=== PATIENT | female | born 1950 | race Caucasian/White ===

== ENCOUNTER 2021-11-15 21:36 | Inpatient (IN) ==
[2021-11-16 00:55] LABS: Basophils # 0.1 K/mcL (0.0-0.2); Basophils % 0.8 %; Eosinophils # 0.3 K/mcL (0.0-0.6); Hematocrit 35.4 % (35.3-44.9); Hemoglobin 11.7 g/dL (11.5-15.4); Immature Granulocytes % 0.5 % (0-4); Lymphocytes # 2.5 K/mcL (0.6-4.6); Lymphocytes % 32.4 %; Mean Corpuscular HGB Conc 33.1 g/dL (31.6-35.5); Mean Corpuscular Hemoglobin 28.8 pg (28.0-33.3); Mean Corpuscular Volume 87.2 fL (83.0-100.0); Mean Platelet Volume 9.8 fL (9.4-12.4); Monocytes # 0.5 K/mcL (0.0-1.3); Monocytes % 6.9 %; Neutrophils # 4.3 K/mcL (1.6-8.9); Platelet Count 230 K/mcL (140-400); Red Blood Count 4.06 M/mcL (3.82-4.97); Red Cell Distribution Width 18.2 % (11.5-14.5); Segmented Neutrophils % 55.4 %; White Blood Count 7.8 K/mcL (4.3-11.1)
[2021-11-16] MEDS ORDERED: *HR* OxyCODONE/APAP 5/325 TABLET PO ONE (00:55)
[2021-11-16 01:17] LABS: Albumin 3.7 g/dL (3.5-5.7); Albumin/Globulin Ratio 0.9 (1.1-2.2); Bilirubin,Total 0.3 mg/dL (0.3-1.0); Calcium 9.3 mg/dL (8.6-10.3); Globulin 3.9 g/dL (2.4-3.5); Potassium 4.7 mEq/L (3.5-5.1); Total Protein 7.6 g/dL (6.4-8.9)
[2021-11-16] MEDS ORDERED: 0.9 % Sodium Chloride 1,000 ML IVC ONE (02:21)
[2021-11-16] MEDS ORDERED: Cefepime HCl 1,000 MG in 0.9 % Sodium Chloride 10 ML IVP ONE (02:21)
[2021-11-16] MEDS ORDERED: Vancomycin 1,250 MG/262.5 ML IV.SOLN IVPB ONE (02:23)
[2021-11-16] MEDS ORDERED: Melatonin 3 MG TABLET PO PRN (03:25)
[2021-11-16] MEDS ORDERED: Ondansetron ODT 4 MG TAB.RAPDIS SL PRN (03:25)
[2021-11-16] MEDS ORDERED: Naloxone 0.4 MG/ML INJ IVP PRN ×2 (03:25→03:48)
[2021-11-16] MEDS ORDERED: D5% in Water 1,000 ML IVC PRN (03:27)
[2021-11-16] MEDS ORDERED: *HR* Dextrose 50 % in Water (Syg) 50 ML SYRINGE IVP PRN (03:27)
[2021-11-16] MEDS ORDERED: Dextrose 4 GM Chewable Tablets PO PRN ×2 (03:27)
[2021-11-16] MEDS ORDERED: Acetaminophen 325 MG TABLET PO PRN (03:48)
[2021-11-16] MEDS ORDERED: *HR* HYDROcodone/Acet 5/325 mg TABLET PO PRN (03:48)
[2021-11-16 05:31] LABS: Hematocrit 35.6 % (35.3-44.9); Hemoglobin 11.1 g/dL (11.5-15.4); Mean Corpuscular HGB Conc 31.2 g/dL (31.6-35.5); Mean Corpuscular Hemoglobin 27.8 pg (28.0-33.3); Mean Corpuscular Volume 89.2 fL (83.0-100.0); Mean Platelet Volume 9.9 fL (9.4-12.4); Platelet Count 205 K/mcL (140-400); Red Blood Count 3.99 M/mcL (3.82-4.97); Red Cell Distribution Width 18.5 % (11.5-14.5); White Blood Count 6.5 K/mcL (4.3-11.1)
[2021-11-16 05:44] LABS: Magnesium 1.9 mg/dL (1.6-2.6); Phosphorous 4.8 mg/dL (2.7-4.5); Potassium 4.3 mEq/L (3.5-5.1)
[2021-11-16] MEDS: Insulin LISPRO 300 UNITS/3 ML VIAL SUBQ SCH ×3 (05:54→22:02)
[2021-11-16 06:46] LABS: INR 1.1; Prothrombin Time 11.7 Seconds (9.4-12.1)
[2021-11-16 06:48] LABS: Activated Partial Thrombo Time 33.6 Seconds (26.0-36.0)
[2021-11-16] MEDS ORDERED: 0.9 % Sodium Chloride 1,000 ML IVC SCH (07:45)
[2021-11-16] MEDS: *HR* OxyCODONE Immed Rel 5 MG TABLET PO PRN ×2 (09:19→18:39)
[2021-11-16 09:21] LABS: Estimated Average Glucose 157 mg/dl; Hemoglobin A1C 7.1 %
[2021-11-17] MEDS: Aspirin Enteric Coated 81 MG Tablet PO SCH ×2 (00:37→21:16)
[2021-11-17] MEDS: ALPRAZolam 1 MG TABLET PO SCH ×2 (00:38→21:15)
[2021-11-17] MEDS: Nystatin POWDER 30 GM BOTTLE TP SCH ×3 (00:38→21:16)
[2021-11-17] MEDS: Insulin LISPRO 300 UNITS/3 ML VIAL SUBQ SCH ×3 (04:48→21:01)
[2021-11-17 06:54] LABS: Hematocrit 41.1 % (35.3-44.9); Hemoglobin 12.7 g/dL (11.5-15.4); Mean Corpuscular HGB Conc 30.9 g/dL (31.6-35.5); Mean Corpuscular Hemoglobin 28.1 pg (28.0-33.3); Mean Corpuscular Volume 90.9 fL (83.0-100.0); Mean Platelet Volume 10.3 fL (9.4-12.4); Platelet Count 199 K/mcL (140-400); Red Blood Count 4.52 M/mcL (3.82-4.97); Red Cell Distribution Width 18.2 % (11.5-14.5); White Blood Count 5.8 K/mcL (4.3-11.1)
[2021-11-17 07:12] LABS: Calcium 9.7 mg/dL (8.6-10.3); Potassium 4.7 mEq/L (3.5-5.1)
[2021-11-17] MEDS ORDERED: Lactulose Oral Soln 20 GM/30 ML UDC PO PRN (07:54)
[2021-11-17] MEDS ORDERED: Gabapentin 300 MG CAPSULE PO SCH (09:00)
[2021-11-17] MEDS: Furosemide 20 MG TABLET PO SCH ×2 (09:10→21:15)
[2021-11-17] MEDS: Gabapentin 300 MG CAPSULE PO SCH ×2 (09:10→14:52)
[2021-11-17] MEDS: allopurinoL 300 MG TABLET PO SCH (09:10)
[2021-11-17] MEDS: Isosorbide MONOnitrate (24 HR) 60 MG TAB.ER.24H PO SCH (09:10)
[2021-11-17] MEDS: *HR* OxyCODONE Immed Rel 5 MG TABLET PO PRN (14:52)
[2021-11-17] MEDS ORDERED: Melatonin 3 MG TABLET PO SCH (21:00)
[2021-11-17] MEDS ORDERED: Gabapentin 400 MG CAPSULE PO SCH (21:00)
[2021-11-17] MEDS ORDERED: *HR* Dextrose 50 % in Water (Syg) 50 ML SYRINGE IVP PRN (21:08)
[2021-11-17] MEDS ORDERED: Dextrose 4 GM Chewable Tablets PO PRN ×2 (21:08)
[2021-11-17] MEDS ORDERED: D5% in Water 1,000 ML IVC PRN (21:08)
[2021-11-17] MEDS ORDERED: Insulin LISPRO 300 UNITS/3 ML VIAL SUBQ SCH (21:15)
[2021-11-18 07:17] VITALS: BP 169/71; PULSE 73; TEMP 97.7; O2SAT 97
[2021-11-18] MEDS ORDERED: Insulin LISPRO 300 UNITS/3 ML VIAL SUBQ SCH (07:30)
[2021-11-18] MEDS: Gabapentin 300 MG CAPSULE PO SCH (09:26)
[2021-11-18] MEDS: allopurinoL 300 MG TABLET PO SCH (09:26)
[2021-11-18] MEDS: Isosorbide MONOnitrate (24 HR) 60 MG TAB.ER.24H PO SCH (09:26)
[2021-11-18] MEDS: Furosemide 20 MG TABLET PO SCH (09:26)
== END 2021-11-18 10:50 | disposition home health service (06) | DRG 300 ==
LOC: 4WAOSI 21:36 → EMEROOARM 21:36 → SUATTDRO 11-16 03:24 → 4WAOSI 11-16 03:55 → SUATTDRO 11-17 09:23
PROVIDERS: ADMIT Internal Medicine; ATTEND Internal Medicine

== ENCOUNTER 2021-12-14 09:56 | Inpatient (IN) ==
[2021-12-14] MEDS ORDERED: *HR* Propofol 200 MG/20 ML VIAL IVP ONE (10:22)
[2021-12-14] MEDS ORDERED: Lidocaine -MPF 2% 2 ML VIAL ONE (10:23)
[2021-12-14] MEDS ORDERED: *HR* Rocuronium Bromide 50 MG/5 ML VIAL ONE ×2 (10:23→14:13)
[2021-12-14] MEDS ORDERED: Ondansetron 4 MG/2 ML VIAL ONE (10:23)
[2021-12-14] MEDS ORDERED: *HR* Heparin 5,000 UNIT/ML VIAL ONE (10:27)
[2021-12-14] MEDS ORDERED: *HR* Phenylephrine 10 MG/ML VIAL ONE (10:31)
[2021-12-14] MEDS ORDERED: CeFAZolin Syr 2,000MG/20 ML 2,000 MG/20 ML SYRINGE IVPB ONE (10:37)
[2021-12-14] MEDS ORDERED: Vancomycin 1,250 MG/262.5 ML IV.SOLN IVPB ONE (10:37)
[2021-12-14] MEDS ORDERED: Ringers Solution, Lactated 1,000 ML IVC SCH (10:45)
[2021-12-14] MEDS ORDERED: Vancomycin 1,000 MG, Sodium Chloride IRRigation 1,000 ML IR ONE (12:25)
[2021-12-14] MEDS ORDERED: Bupivacaine-MPF 0.25% 10 ML VIAL ONE (12:39)
[2021-12-14] MEDS ORDERED: Heparin 1,000 UNITS/500 mL 1,500 ML ONE (12:39)
[2021-12-14] MEDS ORDERED: Isovue-300 50ML VIAL ONE (12:40)
[2021-12-14] MEDS ORDERED: *HR* OxyCODONE Immed Rel 5 MG TABLET PO PRN ×2 (12:49→19:10)
[2021-12-14] MEDS ORDERED: Ondansetron 4 MG/2 ML VIAL IVP PRN (12:49)
[2021-12-14] MEDS ORDERED: *HR* HYDROmorphone PF 0.5 MG/0.5 ML SYRINGE IVP PRN (12:49)
[2021-12-14] MEDS ORDERED: Heparin 1,000 UNITS/500 mL 0 ML ONE (12:56)
[2021-12-14] MEDS ORDERED: *HR* FentaNYL (PF) 100 MCG/2 ML VIAL ONE (13:19)
[2021-12-14] MEDS ORDERED: *HR* Midazolam HCl 2 MG/2 ML VIAL ONE (13:19)
[2021-12-14] MEDS ORDERED: EPHEDrine 50 MG/ML VIAL ONE (13:48)
[2021-12-14] MEDS ORDERED: *HR* Vasopressin 20 UNIT/ML VIAL ONE (14:09)
[2021-12-14] MEDS ORDERED: Sugammadex Sodium 200 MG/2 ML VIAL IV ONE (17:10)
[2021-12-14] MEDS ORDERED: *HR* HYDROMORPHONE 2 MG/ML VIAL ONE (17:29)
[2021-12-14] MEDS ORDERED: Dextrose Gel 15 GM/37.5 ML TUBE PO PRN ×2 (19:10)
[2021-12-14] MEDS ORDERED: Ipratropium/Albuterol Neb 3 ML IH PRN (19:10)
[2021-12-14] MEDS ORDERED: D5% in Water 1,000 ML IVC PRN (19:10)
[2021-12-14] MEDS ORDERED: Acetaminophen 325 MG TABLET PO PRN (19:10)
[2021-12-14] MEDS ORDERED: *HR* HYDROcodone/Acet 5/325 mg TABLET PO PRN (19:10)
[2021-12-14] MEDS ORDERED: Naloxone 0.4 MG/ML INJ IVP PRN (19:10)
[2021-12-14] MEDS ORDERED: 0.9 % Sodium Chloride 1,000 ML IVC SCH (19:10)
[2021-12-14] MEDS ORDERED: Nitroglycerin 0.4 MG TAB.SUBL SL PRN (19:10)
[2021-12-14] MEDS ORDERED: *HR* Labetalol 20 MG/4 ML SYRINGE IVP PRN (19:10)
[2021-12-14] MEDS ORDERED: *HR* Dextrose 50 % in Water (Syg) 50 ML SYRINGE IVP PRN (19:10)
[2021-12-14] MEDS: Gabapentin 300 MG CAPSULE PO SCH (19:48)
[2021-12-14] MEDS: lisinopriL 20 MG TABLET PO SCH (19:48)
[2021-12-14] MEDS: *HR* Metoprolol 5 MG/5 ML VIAL IVP SCH (19:53)
[2021-12-14] MEDS ORDERED: ALPRAZolam 1 MG TABLET PO SCH (21:00)
[2021-12-14] MEDS ORDERED: Insulin LISPRO 300 UNITS/3 ML VIAL SUBQ SCH (21:00)
[2021-12-14] MEDS ORDERED: Aspirin Enteric Coated 81 MG Tablet PO SCH (21:00)
[2021-12-14] MEDS: CeFAZolin 2 GM/120 ML BAG IVPB SCH (22:24)
[2021-12-15] MEDS: *HR* Metoprolol 5 MG/5 ML VIAL IVP SCH ×2 (00:43→05:23)
[2021-12-15] MEDS ORDERED: Vancomycin 1,250 MG/262.5 ML IV.SOLN IVPB ONE (01:00)
[2021-12-15 04:12] LABS: Basophils % 0.1 %; Eosinophils % 0.1 %; Hematocrit 27.2 % (35.3-44.9); Hemoglobin 8.3 g/dL (11.5-15.4); Immature Granulocytes % 0.7 % (0-4); Lymphocytes # 1.2 K/mcL (0.6-4.6); Lymphocytes % 14.1 %; Mean Corpuscular HGB Conc 30.5 g/dL (31.6-35.5); Mean Corpuscular Volume 91.9 fL (83.0-100.0); Mean Platelet Volume 10.2 fL (9.4-12.4); Monocytes # 0.5 K/mcL (0.0-1.3); Monocytes % 5.3 %; Platelet Count 174 K/mcL (140-400); Red Blood Count 2.96 M/mcL (3.82-4.97); Red Cell Distribution Width 18.2 % (11.5-14.5); Segmented Neutrophils % 79.7 %; White Blood Count 8.7 K/mcL (4.3-11.1)
[2021-12-15 04:30] LABS: Calcium 8.5 mg/dL (8.6-10.3); Potassium 5.7 mEq/L (3.5-5.1)
[2021-12-15] MEDS: CeFAZolin 2 GM/120 ML BAG IVPB SCH (05:30)
[2021-12-15] MEDS: lisinopriL 20 MG TABLET PO SCH (08:14)
[2021-12-15] MEDS: Gabapentin 300 MG CAPSULE PO SCH (08:15)
[2021-12-15] MEDS: Insulin LISPRO 300 UNITS/3 ML VIAL SUBQ SCH ×2 (08:15→11:23)
[2021-12-15] MEDS ORDERED: hydrALAZINE 25 MG TABLET PO SCH (09:00)
[2021-12-15] MEDS ORDERED: carvediloL 25 MG TABLET PO SCH (09:00)
[2021-12-15] MEDS ORDERED: allopurinoL 300 MG TABLET PO SCH (09:00)
[2021-12-15] MEDS ORDERED: Furosemide 20 MG TABLET PO SCH (09:00)
[2021-12-15 10:02] VITALS: BP 121/49
[2021-12-15 11:23] VITALS: PULSE 55; TEMP 97.8; O2SAT 92
[2021-12-15] MEDS ORDERED: *HR* Heparin 5,000 UNIT/ML VIAL SQ SCH ×2 (18:00)
== END 2021-12-15 13:09 | disposition home or self-care (01) | DRG 254 ==
LOC: SAMDAY 09:56 → 2NNU 18:50
PROVIDERS: ADMIT Surgery; ATTEND Surgery

== ENCOUNTER 2021-12-17 04:47 | Inpatient (IN) ==
[2021-12-17] MEDS ORDERED: *HR* Metoprolol 5 MG/5 ML VIAL IVP ONE (10:47)
[2021-12-17] MEDS ORDERED: Nitroglycerin 0.4 MG TAB.SUBL SL PRN (11:01)
[2021-12-17] MEDS ORDERED: Perflutren Lipid Microsphere 1.3 ML in 0.9 % Sodium Chloride 8.7 ML IVP PRN (11:01)
[2021-12-17] MEDS ORDERED: D5% in Water 1,000 ML IVC PRN (11:15)
[2021-12-17] MEDS ORDERED: Dextrose Gel 15 GM/37.5 ML TUBE PO PRN ×2 (11:15)
[2021-12-17] MEDS ORDERED: *HR* Dextrose 50 % in Water (Syg) 50 ML SYRINGE IVP PRN (11:15)
[2021-12-17 11:30] LABS: Hemoglobin 9.4 g/dL (11.5-15.4); Mean Corpuscular HGB Conc 32.4 g/dL (31.6-35.5); Mean Corpuscular Hemoglobin 27.8 pg (28.0-33.3); Mean Platelet Volume 10.2 fL (9.4-12.4); Platelet Count 195 K/mcL (140-400); Red Blood Count 3.38 M/mcL (3.82-4.97); Red Cell Distribution Width 17.8 % (11.5-14.5); White Blood Count 7.7 K/mcL (4.3-11.1)
[2021-12-17 11:31] LABS: Mean Corpuscular Volume 85.8 fL (83.0-100.0)
[2021-12-17] MEDS: Insulin LISPRO 300 UNITS/3 ML VIAL SUBQ SCH ×2 (11:51→16:16)
[2021-12-17] MEDS: MethylPREDNISolone 40 MG/ML VIAL IVP SCH ×2 (11:51→16:15)
[2021-12-17] MEDS: Aspirin 81 MG TAB.CHEW PO SCH (11:51)
[2021-12-17 11:55] LABS: Alanine Aminotransferase 11 Units/L (7-52); Albumin 3.5 g/dL (3.5-5.7); Albumin/Globulin Ratio 0.7 (1.1-2.2); Alkaline Phosphatase 99 Units/L (34-104); Aspartate Amino Transferase 32 Units/L (13-39); BUN/Creatinine Ratio 22 (6-26); Bilirubin,Total 0.4 mg/dL (0.3-1.0); Blood Urea Nitrogen 24 mg/dL (8-23); C-Reactive Protein 93 mg/L (Less than 10); Calcium 9.7 mg/dL (8.6-10.3); Carbon Dioxide 25 mEq/L (23-29); Chloride 96 mEq/L (98-107); Glucose 173 mg/dL (70-105); Osmolality,Calculated 280 (280-300); Potassium 4.3 mEq/L (3.5-5.1); Sodium 131 mEq/L (136-145); Total Protein 8.5 g/dL (6.4-8.9); Troponin I 0.08 ng/mL (< 0.04); eGFR For African Americans > 60 (> 60); eGFR For Non-African Americans 50 (> 60)
[2021-12-17] MEDS ORDERED: *HR* Heparin 5,000 UNIT/ML VIAL IVP PRN ×2 (13:49)
[2021-12-17] MEDS ORDERED: *HR* Heparin 5,000 UNIT/ML VIAL IVP ONE (13:49)
[2021-12-17] MEDS: Heparin 25,000UNIT/250ML 1/2NS 25,000 UNIT/250 ML IV.SOLN IVC SCH (14:36)
[2021-12-17] MEDS: *HR* OxyCODONE/APAP 10/325 TABLET PO PRN (14:43)
[2021-12-17] MEDS: Furosemide 40 MG/4 ML VIAL IVP SCH ×2 (14:43→20:45)
[2021-12-17] MEDS: Isosorbide MONOnitrate (24 HR) 60 MG TAB.ER.24H PO SCH (14:43)
[2021-12-17] MEDS: lisinopriL 10 MG TABLET PO SCH (14:43)
[2021-12-17] MEDS: Ipratropium/Albuterol Neb 3 ML IH SCH ×2 (16:26→22:42)
[2021-12-17 18:31] LABS: Heparin anti-factor XA UFH 0.67 IU/mL (0.30-0.70); INR 1.2
[2021-12-17] MEDS: ALPRAZolam 1 MG TABLET PO SCH (20:45)
[2021-12-17] MEDS: Ondansetron 4 MG/2 ML VIAL IVP PRN (20:50)
[2021-12-17] MEDS ORDERED: Aspirin Enteric Coated 81 MG Tablet PO SCH (21:00)
[2021-12-17] MEDS: Budesonide/Formoterol 160/4.5 1 PUFF INH IH SCH (22:42)
[2021-12-18] MEDS: *HR* OxyCODONE/APAP 10/325 TABLET PO PRN (00:22)
[2021-12-18] MEDS: Melatonin 3 MG TABLET PO PRN (00:22)
[2021-12-18] MEDS: MethylPREDNISolone 40 MG/ML VIAL IVP SCH ×3 (00:22→13:15)
[2021-12-18] MEDS: Insulin LISPRO 300 UNITS/3 ML VIAL SUBQ SCH ×5 (00:23→21:12)
[2021-12-18] MEDS: Ipratropium/Albuterol Neb 3 ML IH SCH ×4 (04:37→21:20)
[2021-12-18 04:49] LABS: Basophils % 0.1 %; Hematocrit 29.6 % (35.3-44.9); Hemoglobin 9.3 g/dL (11.5-15.4); Immature Granulocytes % 0.9 % (0-4); Lymphocytes # 0.8 K/mcL (0.6-4.6); Mean Corpuscular HGB Conc 31.4 g/dL (31.6-35.5); Mean Corpuscular Hemoglobin 27.4 pg (28.0-33.3); Mean Corpuscular Volume 87.3 fL (83.0-100.0); Mean Platelet Volume 10.7 fL (9.4-12.4); Monocytes # 0.4 K/mcL (0.0-1.3); Monocytes % 3.3 %; Neutrophils # 9.3 K/mcL (1.6-8.9); Platelet Count 238 K/mcL (140-400); Red Blood Count 3.39 M/mcL (3.82-4.97); Red Cell Distribution Width 18.1 % (11.5-14.5); Segmented Neutrophils % 87.7 %; White Blood Count 10.5 K/mcL (4.3-11.1)
[2021-12-18 04:51] LABS: Heparin anti-factor XA UFH 0.47 IU/mL (0.30-0.70)
[2021-12-18 04:52] LABS: Prothrombin Time 11.6 Seconds (9.4-12.1)
[2021-12-18 05:00] LABS: Albumin 3.8 g/dL (3.5-5.7); Albumin/Globulin Ratio 0.8 (1.1-2.2); Bilirubin,Total 0.3 mg/dL (0.3-1.0); Calcium 9.7 mg/dL (8.6-10.3); Globulin 4.9 g/dL (2.4-3.5); Magnesium 1.9 mg/dL (1.6-2.6); Potassium 4.5 mEq/L (3.5-5.1); Total Protein 8.7 g/dL (6.4-8.9)
[2021-12-18] MEDS: allopurinoL 300 MG TABLET PO SCH (08:01)
[2021-12-18] MEDS: Aspirin 81 MG TAB.CHEW PO SCH (08:01)
[2021-12-18] MEDS: lisinopriL 10 MG TABLET PO SCH (08:01)
[2021-12-18] MEDS: Isosorbide MONOnitrate (24 HR) 60 MG TAB.ER.24H PO SCH (08:02)
[2021-12-18 08:31] LABS: Estimated Average Glucose 154 mg/dl
[2021-12-18] MEDS: Budesonide/Formoterol 160/4.5 1 PUFF INH IH SCH ×2 (10:28→21:20)
[2021-12-18] MEDS: Heparin 25,000UNIT/250ML 1/2NS 25,000 UNIT/250 ML IV.SOLN IVC SCH (15:38)
[2021-12-18] MEDS: amLODIPine 5 MG TABLET PO SCH (15:39)
[2021-12-18] MEDS: ALPRAZolam 1 MG TABLET PO SCH (21:07)
[2021-12-18] MEDS: Gabapentin 400 MG CAPSULE PO SCH (21:07)
[2021-12-19 04:25] LABS: Hemoglobin 8.3 g/dL (11.5-15.4); Mean Corpuscular HGB Conc 30.7 g/dL (31.6-35.5); Mean Corpuscular Hemoglobin 27.2 pg (28.0-33.3); Mean Corpuscular Volume 88.5 fL (83.0-100.0); Mean Platelet Volume 10.8 fL (9.4-12.4); Platelet Count 221 K/mcL (140-400); Red Blood Count 3.05 M/mcL (3.82-4.97); Red Cell Distribution Width 18.5 % (11.5-14.5)
[2021-12-19] MEDS: Ipratropium/Albuterol Neb 3 ML IH SCH ×4 (04:34→22:35)
[2021-12-19 04:43] LABS: Calcium 9.3 mg/dL (8.6-10.3); Potassium 4.4 mEq/L (3.5-5.1)
[2021-12-19] MEDS: Budesonide/Formoterol 160/4.5 1 PUFF INH IH SCH ×2 (07:33→22:34)
[2021-12-19] MEDS: Insulin LISPRO 300 UNITS/3 ML VIAL SUBQ SCH ×4 (07:37→21:07)
[2021-12-19 07:38] LABS: ABG Base Excess 2 mEq/L (-2 to 3); ABG HCO3 25 mEq/L (21-27); ABG Oxygen Saturation 95 % (95-98); ABG PCO2 35 mmHg (35-45); ABG PH 7.47 pH Units (7.32-7.45); ABG PO2 69 mmHg (85-104); ABG TCO2 26 mEq/L (20-26)
[2021-12-19] MEDS ORDERED: Furosemide 40 MG/4 ML VIAL IVP ONE (07:44)
[2021-12-19] MEDS: MethylPREDNISolone 40 MG/ML VIAL IVP SCH ×2 (08:09→21:02)
[2021-12-19] MEDS: Isosorbide MONOnitrate (24 HR) 60 MG TAB.ER.24H PO SCH (08:16)
[2021-12-19] MEDS: allopurinoL 300 MG TABLET PO SCH (08:16)
[2021-12-19] MEDS: Gabapentin 400 MG CAPSULE PO SCH ×2 (08:16→12:58)
[2021-12-19] MEDS: amLODIPine 5 MG TABLET PO SCH (08:16)
[2021-12-19] MEDS: Aspirin 81 MG TAB.CHEW PO SCH (08:16)
[2021-12-19 09:01] LABS: Bilirubin,Urine Negative (Negative); Blood,Urine Negative (Negative); Clarity,Urine Clear (Clear); Color,Urine Light-Yellow (Yellow); Glucose,Urine (UA) Normal (Normal); Ketones,Urine Negative (Negative); Leukocyte Esterase,Urine Negative (Negative); Nitrite,Urine Negative (Negative); PH,Urine 6.5 pH Units (5.0-8.0); Protein,Urine 50 mg/dL (Neg-Trace); Specific Gravity,Urine 1.014 (1.010-1.025); Transitional Epi Cells,Urine Few per hpf (None-Few); Urobilinogen,Urine Normal (Normal); WBC,Urine 0-3 per hpf (0-3)
[2021-12-19] MEDS ORDERED: Albumin 25% 25gram/100mL 25 GM/100 ML IV.SOLN ONE (13:43)
[2021-12-19] MEDS ORDERED: Albumin 25% 25gram/100mL 25 GM/100 ML IV.SOLN IVPB ONE (13:45)
[2021-12-19] MEDS ORDERED: 0.9 % Sodium Chloride 500 ML ONE (13:47)
[2021-12-19] MEDS ORDERED: 0.9 % Sodium Chloride 500 ML IVC ONE (13:51)
[2021-12-19 14:09] LABS: Hemoglobin 8.2 g/dL (11.5-15.4)
[2021-12-19] MEDS: *HR* Heparin 5,000 UNIT/ML VIAL SQ SCH (16:48)
[2021-12-19 16:59] LABS: Thyroid Stimulating Hormone 2.944 mcIU/mL (0.340-5.600)
[2021-12-19] MEDS ORDERED: carvediloL 6.25 MG TABLET PO SCH (17:00)
[2021-12-19] MEDS: ALPRAZolam 1 MG TABLET PO SCH (21:01)
[2021-12-20 03:36] LABS: Basophils % 0.1 %; Eosinophils % 0.1 %; Hematocrit 24.5 % (35.3-44.9); Hemoglobin 7.5 g/dL (11.5-15.4); Immature Granulocytes % 0.8 % (0-4); Lymphocytes % 5.8 %; Mean Corpuscular HGB Conc 30.6 g/dL (31.6-35.5); Mean Corpuscular Hemoglobin 27.5 pg (28.0-33.3); Mean Corpuscular Volume 89.7 fL (83.0-100.0); Mean Platelet Volume 10.8 fL (9.4-12.4); Monocytes # 0.7 K/mcL (0.0-1.3); Neutrophils # 15.3 K/mcL (1.6-8.9); Platelet Count 198 K/mcL (140-400); Red Blood Count 2.73 M/mcL (3.82-4.97); Red Cell Distribution Width 18.6 % (11.5-14.5); Segmented Neutrophils % 89.2 %
[2021-12-20 03:40] LABS: White Blood Count 17.1 K/mcL (4.3-11.1)
[2021-12-20 03:58] LABS: Calcium 9.2 mg/dL (8.6-10.3)
[2021-12-20] MEDS: Ipratropium/Albuterol Neb 3 ML IH SCH ×4 (04:29→22:28)
[2021-12-20] MEDS: *HR* Heparin 5,000 UNIT/ML VIAL SQ SCH ×2 (05:16→17:20)
[2021-12-20] MEDS: Isosorbide MONOnitrate (24 HR) 60 MG TAB.ER.24H PO SCH (07:50)
[2021-12-20] MEDS: Aspirin 81 MG TAB.CHEW PO SCH (07:50)
[2021-12-20] MEDS: Insulin LISPRO 300 UNITS/3 ML VIAL SUBQ SCH ×6 (07:50→20:33)
[2021-12-20] MEDS: allopurinoL 300 MG TABLET PO SCH (07:50)
[2021-12-20] MEDS: MethylPREDNISolone 40 MG/ML VIAL IVP SCH (07:51)
[2021-12-20] MEDS: *HR* OxyCODONE/APAP 10/325 TABLET PO PRN (07:55)
[2021-12-20] MEDS: Azithromycin 250 MG TABLET PO SCH (10:01)
[2021-12-20] MEDS: Budesonide/Formoterol 160/4.5 1 PUFF INH IH SCH ×2 (10:20→22:28)
[2021-12-20 11:12] LABS: Adenovirus Not Detected (Not Detect); Bordetella Pertussis Not Detected (Not Detect); Chlamydophila pneumoniae Not Detected (Not Detect); Coronavirus 229E Not Detected (Not Detect); Coronavirus HKU1 Not Detected (Not Detect); Coronavirus NL63 Not Detected (Not Detect); Coronavirus OC43 Not Detected (Not Detect); Human Metapneumovirus Not Detected (Not Detect); Human Rhinovirus/Enterovirus Not Detected (Not Detect); Influenza A Subtype 2009 H1 Not Detected (Not Detect); Influenza B Not Detected (Not Detect); Mycoplasma pneumoniae Not Detected (Not Detect); Parainfluenza Virus 1 Not Detected (Not Detect); Parainfluenza Virus 2 Not Detected (Not Detect); Parainfluenza Virus 3 Not Detected (Not Detect); Parainfluenza Virus 4 Not Detected (Not Detect); Respiratory Syncytial Virus Not Detected (Not Detect); SARS-CoV-2 Not Detected (Not Detect)
[2021-12-20 16:37] LABS: Protein/Creatinine Ratio,Urine 1.04 mg/mg (0.00-0.20); Sodium, Urine 50.5 mEq/L
[2021-12-20] MEDS ORDERED: Insulin LISPRO 300 UNITS/3 ML VIAL SUBQ SCH (16:53)
[2021-12-20] MEDS: ALPRAZolam 1 MG TABLET PO SCH (20:35)
[2021-12-20] MEDS ORDERED: Insulin DETEMIR 100 UNIT/ML X5UNITS SUBQ SCH (21:00)
[2021-12-21 03:56] LABS: Basophils % 0.2 %; Eosinophils % 0.1 %; Hematocrit 24.8 % (35.3-44.9); Hemoglobin 7.7 g/dL (11.5-15.4); Immature Granulocytes % 2.1 % (0-4); Lymphocytes # 1.9 K/mcL (0.6-4.6); Mean Corpuscular Volume 90.2 fL (83.0-100.0); Mean Platelet Volume 11.1 fL (9.4-12.4); Monocytes # 0.9 K/mcL (0.0-1.3); Monocytes % 5.6 %; Neutrophils # 12.4 K/mcL (1.6-8.9); Nucleated Red Blood Cells 0.1 /100 WBC (0); Platelet Count 221 K/mcL (140-400); Red Blood Count 2.75 M/mcL (3.82-4.97); Red Cell Distribution Width 18.8 % (11.5-14.5); White Blood Count 15.5 K/mcL (4.3-11.1)
[2021-12-21] MEDS: Ipratropium/Albuterol Neb 3 ML IH SCH ×4 (04:09→21:08)
[2021-12-21 04:16] LABS: Calcium 9.2 mg/dL (8.6-10.3); Potassium 4.5 mEq/L (3.5-5.1)
[2021-12-21] MEDS: *HR* Heparin 5,000 UNIT/ML VIAL SQ SCH ×2 (06:05→16:01)
[2021-12-21] MEDS: *HR* OxyCODONE/APAP 10/325 TABLET PO PRN (08:12)
[2021-12-21] MEDS: Insulin LISPRO 300 UNITS/3 ML VIAL SUBQ SCH ×4 (08:13→21:57)
[2021-12-21] MEDS: Azithromycin 250 MG TABLET PO SCH (08:13)
[2021-12-21] MEDS: Aspirin 81 MG TAB.CHEW PO SCH (08:13)
[2021-12-21] MEDS: allopurinoL 300 MG TABLET PO SCH (08:13)
[2021-12-21] MEDS: Isosorbide MONOnitrate (24 HR) 60 MG TAB.ER.24H PO SCH (08:13)
[2021-12-21] MEDS ORDERED: predniSONE 20 MG TABLET PO SCH (09:00)
[2021-12-21] MEDS: Budesonide/Formoterol 160/4.5 1 PUFF INH IH SCH ×2 (10:49→21:09)
[2021-12-21] MEDS: cefTRIAXone 1,000 MG in 0.9 % Sodium Chloride 10 ML IVP SCH (11:29)
[2021-12-21] MEDS: amLODIPine 5 MG TABLET PO SCH (12:04)
[2021-12-21 14:54] LABS: Complement C3 137 mg/dL (87-200)
[2021-12-21] MEDS: Albumin 25% 25gram/100mL 25 GM/100 ML IV.SOLN IVPB SCH (15:57)
[2021-12-21] MEDS: ALPRAZolam 1 MG TABLET PO SCH (21:55)
[2021-12-21] MEDS: Insulin DETEMIR 100 UNIT/ML X5UNITS SUBQ SCH (21:57)
[2021-12-21] MEDS ORDERED: *HR* Labetalol 20 MG/4 ML SYRINGE IVP ONE (23:22)
[2021-12-22] MEDS: Albumin 25% 25gram/100mL 25 GM/100 ML IV.SOLN IVPB SCH ×2 (01:56→08:02)
[2021-12-22 03:52] LABS: Basophils % 0.2 %; Eosinophils % 0.1 %; Hematocrit 25.3 % (35.3-44.9); Hemoglobin 7.7 g/dL (11.5-15.4); Immature Granulocytes % 1.7 % (0-4); Lymphocytes # 1.4 K/mcL (0.6-4.6); Lymphocytes % 11.7 %; Mean Corpuscular HGB Conc 30.4 g/dL (31.6-35.5); Mean Corpuscular Hemoglobin 27.4 pg (28.0-33.3); Mean Platelet Volume 10.8 fL (9.4-12.4); Monocytes # 0.5 K/mcL (0.0-1.3); Monocytes % 4.2 %; Platelet Count 209 K/mcL (140-400); Red Blood Count 2.81 M/mcL (3.82-4.97); Red Cell Distribution Width 18.6 % (11.5-14.5); Segmented Neutrophils % 82.1 %; White Blood Count 12.2 K/mcL (4.3-11.1)
[2021-12-22] MEDS: Ipratropium/Albuterol Neb 3 ML IH SCH ×4 (03:59→21:06)
[2021-12-22] MEDS: *HR* Heparin 5,000 UNIT/ML VIAL SQ SCH ×2 (05:49→17:37)
[2021-12-22 06:17] LABS: Calcium 9.8 mg/dL (8.6-10.3); Potassium 4.5 mEq/L (3.5-5.1)
[2021-12-22] MEDS: Insulin LISPRO 300 UNITS/3 ML VIAL SUBQ SCH ×4 (07:58→20:03)
[2021-12-22] MEDS: Azithromycin 250 MG TABLET PO SCH (08:00)
[2021-12-22] MEDS: Isosorbide MONOnitrate (24 HR) 60 MG TAB.ER.24H PO SCH (08:01)
[2021-12-22] MEDS: Aspirin 81 MG TAB.CHEW PO SCH (08:01)
[2021-12-22] MEDS: amLODIPine 5 MG TABLET PO SCH (08:01)
[2021-12-22] MEDS: *HR* OxyCODONE/APAP 10/325 TABLET PO PRN ×2 (08:01→17:36)
[2021-12-22] MEDS: allopurinoL 300 MG TABLET PO SCH (08:01)
[2021-12-22] MEDS: cefTRIAXone 1,000 MG in 0.9 % Sodium Chloride 10 ML IVP SCH (08:03)
[2021-12-22] MEDS: Insulin DETEMIR 100 UNIT/ML X5UNITS SUBQ SCH ×2 (08:05→20:03)
[2021-12-22] MEDS: Budesonide/Formoterol 160/4.5 1 PUFF INH IH SCH ×2 (10:27→21:06)
[2021-12-22] MEDS: lisinopriL 20 MG TABLET PO SCH (11:30)
[2021-12-22] MEDS: Gabapentin 400 MG CAPSULE PO SCH ×2 (17:35→20:02)
[2021-12-22] MEDS: Vancomycin 1,250 MG/262.5 ML IV.SOLN IVPB SCH (18:03)
[2021-12-22] MEDS: Clindamycin 900 MG/50 ML 900 MG/50 ML IV.SOLN IVPB SCH (18:09)
[2021-12-22] MEDS: Melatonin 3 MG TABLET PO PRN (20:02)
[2021-12-22] MEDS: ALPRAZolam 1 MG TABLET PO SCH (20:03)
[2021-12-23] MEDS: Clindamycin 900 MG/50 ML 900 MG/50 ML IV.SOLN IVPB SCH ×3 (01:51→16:18)
[2021-12-23 02:41] LABS: Hematocrit 26.9 % (35.3-44.9); Hemoglobin 8.6 g/dL (11.5-15.4)
[2021-12-23 02:43] LABS: Basophils % 0.5 %; Eosinophils # 0.1 K/mcL (0.0-0.6); Eosinophils % 1.5 %; Immature Granulocytes % 3.5 % (0-4); Immature Platelets 5.2 % (1.1-6.1); Lymphocytes # 1.4 K/mcL (0.6-4.6); Lymphocytes % 18.2 %; Mean Corpuscular Hemoglobin 28.1 pg (28.0-33.3); Mean Corpuscular Volume 87.9 fL (83.0-100.0); Mean Platelet Volume 10.6 fL (9.4-12.4); Monocytes # 0.5 K/mcL (0.0-1.3); Monocytes % 6.7 %; Neutrophils # 5.5 K/mcL (1.6-8.9); Nucleated Red Blood Cells 0.5 /100 WBC (0); Platelet Count 217 K/mcL (140-400); Red Blood Count 3.06 M/mcL (3.82-4.97); Red Cell Distribution Width 18.8 % (11.5-14.5); Segmented Neutrophils % 69.6 %; White Blood Count 7.9 K/mcL (4.3-11.1)
[2021-12-23 02:46] LABS: Calcium 9.6 mg/dL (8.6-10.3); Potassium 4.9 mEq/L (3.5-5.1)
[2021-12-23 03:07] LABS: Platelet Estimate Normal (Normal)
[2021-12-23 03:08] LABS: Anisocytosis 1+ (Not Present); Hypochromasia Present (Not Present); Polychromasia 1+ (Not Present)
[2021-12-23] MEDS: Ipratropium/Albuterol Neb 3 ML IH SCH ×4 (03:53→22:03)
[2021-12-23] MEDS: *HR* Heparin 5,000 UNIT/ML VIAL SQ SCH ×2 (04:51→16:18)
[2021-12-23] MEDS: Insulin LISPRO 300 UNITS/3 ML VIAL SUBQ SCH ×4 (07:58→20:23)
[2021-12-23] MEDS ORDERED: *HR* FentaNYL (PF) 100 MCG/2 ML VIAL ONE (08:30)
[2021-12-23] MEDS ORDERED: *HR* Midazolam HCl 2 MG/2 ML VIAL ONE (08:30)
[2021-12-23] MEDS ORDERED: Lidocaine -MPF 2% 2 ML VIAL ONE (08:31)
[2021-12-23] MEDS ORDERED: Ketamine HCL *QUVA* 50mg (1mL) SYRINGE ONE (08:54)
[2021-12-23] MEDS: Budesonide/Formoterol 160/4.5 1 PUFF INH IH SCH ×2 (10:14→22:03)
[2021-12-23] MEDS: allopurinoL 300 MG TABLET PO SCH (10:49)
[2021-12-23] MEDS: cefTRIAXone 1,000 MG in 0.9 % Sodium Chloride 10 ML IVP SCH (10:49)
[2021-12-23] MEDS: Isosorbide MONOnitrate (24 HR) 60 MG TAB.ER.24H PO SCH (10:49)
[2021-12-23] MEDS: lisinopriL 20 MG TABLET PO SCH (10:49)
[2021-12-23] MEDS: Insulin DETEMIR 100 UNIT/ML X5UNITS SUBQ SCH ×2 (10:57→20:23)
[2021-12-23] MEDS: Aspirin 81 MG TAB.CHEW PO SCH (10:58)
[2021-12-23] MEDS: amLODIPine 5 MG TABLET PO SCH (10:58)
[2021-12-23] MEDS: Gabapentin 400 MG CAPSULE PO SCH ×3 (11:00→20:23)
[2021-12-23] MEDS: *HR* OxyCODONE/APAP 10/325 TABLET PO PRN (16:25)
[2021-12-23] MEDS: Vancomycin 1,250 MG/262.5 ML IV.SOLN IVPB SCH (18:01)
[2021-12-23] MEDS: ALPRAZolam 1 MG TABLET PO SCH (20:23)
[2021-12-24] MEDS: Clindamycin 900 MG/50 ML 900 MG/50 ML IV.SOLN IVPB SCH ×3 (00:08→16:24)
[2021-12-24 01:35] LABS: Basophils # 0.1 K/mcL (0.0-0.2); Eosinophils # 0.2 K/mcL (0.0-0.6); Eosinophils % 1.7 %; Hematocrit 31.7 % (35.3-44.9); Hemoglobin 10.1 g/dL (11.5-15.4); Immature Granulocytes % 4.5 % (0-4); Lymphocytes # 1.8 K/mcL (0.6-4.6); Lymphocytes % 20.2 %; Mean Corpuscular HGB Conc 31.9 g/dL (31.6-35.5); Mean Corpuscular Hemoglobin 28.5 pg (28.0-33.3); Mean Corpuscular Volume 89.5 fL (83.0-100.0); Mean Platelet Volume 9.9 fL (9.4-12.4); Monocytes # 0.7 K/mcL (0.0-1.3); Monocytes % 7.7 %; Neutrophils # 5.9 K/mcL (1.6-8.9); Nucleated Red Blood Cells 0.3 /100 WBC (0); Platelet Count 217 K/mcL (140-400); Red Blood Count 3.54 M/mcL (3.82-4.97); Red Cell Distribution Width 19.1 % (11.5-14.5); Segmented Neutrophils % 64.9 %; White Blood Count 9.1 K/mcL (4.3-11.1)
[2021-12-24 01:57] LABS: Calcium 9.4 mg/dL (8.6-10.3); Potassium 5.7 mEq/L (3.5-5.1)
[2021-12-24] MEDS: Ipratropium/Albuterol Neb 3 ML IH SCH ×4 (03:37→21:28)
[2021-12-24] MEDS: *HR* Heparin 5,000 UNIT/ML VIAL SQ SCH ×2 (05:22→16:24)
[2021-12-24] MEDS ORDERED: Calcium Gluconate 1gm/50mL 1 GM/50 ML BAG IVPB ONE (07:44)
[2021-12-24] MEDS ORDERED: SODIUM ZIRCONIUM CYCLOSILICATE 5 GM POWD.PACK PO ONE (07:44)
[2021-12-24] MEDS: Aspirin 81 MG TAB.CHEW PO SCH (08:05)
[2021-12-24] MEDS: Isosorbide MONOnitrate (24 HR) 60 MG TAB.ER.24H PO SCH (08:05)
[2021-12-24] MEDS: allopurinoL 300 MG TABLET PO SCH (08:05)
[2021-12-24] MEDS: Gabapentin 400 MG CAPSULE PO SCH ×3 (08:05→20:55)
[2021-12-24] MEDS: cefTRIAXone 1,000 MG in 0.9 % Sodium Chloride 10 ML IVP SCH (08:06)
[2021-12-24] MEDS: Insulin LISPRO 300 UNITS/3 ML VIAL SUBQ SCH ×4 (08:07→20:56)
[2021-12-24] MEDS: amLODIPine 5 MG TABLET PO SCH (08:12)
[2021-12-24] MEDS: Budesonide/Formoterol 160/4.5 1 PUFF INH IH SCH ×2 (10:33→21:28)
[2021-12-24] MEDS: lisinopriL 20 MG TABLET PO SCH (11:36)
[2021-12-24] MEDS: Insulin DETEMIR 100 UNIT/ML X5UNITS SUBQ SCH ×2 (11:36→20:55)
[2021-12-24 15:12] LABS: Calcium 9.5 mg/dL (8.6-10.3); Potassium 4.5 mEq/L (3.5-5.1)
[2021-12-24] MEDS: Sennosides/Docusate Sodium TABLET PO SCH ×2 (16:24→20:55)
[2021-12-24] MEDS: Vancomycin 1,250 MG/262.5 ML IV.SOLN IVPB SCH (18:13)
[2021-12-24] MEDS: ALPRAZolam 1 MG TABLET PO SCH (20:54)
[2021-12-24] MEDS: *HR* OxyCODONE/APAP 10/325 TABLET PO PRN (20:54)
[2021-12-24] MEDS: Melatonin 3 MG TABLET PO PRN (22:18)
[2021-12-25] MEDS: Clindamycin 900 MG/50 ML 900 MG/50 ML IV.SOLN IVPB SCH ×2 (00:52→08:00)
[2021-12-25 03:27] LABS: Basophils % 0.3 %; Eosinophils # 0.2 K/mcL (0.0-0.6); Eosinophils % 2.7 %; Hematocrit 27.3 % (35.3-44.9); Immature Granulocytes % 3.1 % (0-4); Lymphocytes # 1.6 K/mcL (0.6-4.6); Lymphocytes % 20.1 %; Mean Corpuscular HGB Conc 31.1 g/dL (31.6-35.5); Mean Corpuscular Hemoglobin 27.7 pg (28.0-33.3); Mean Corpuscular Volume 88.9 fL (83.0-100.0); Mean Platelet Volume 10.2 fL (9.4-12.4); Monocytes # 0.6 K/mcL (0.0-1.3); Monocytes % 8.3 %; Platelet Count 197 K/mcL (140-400); Red Blood Count 3.07 M/mcL (3.82-4.97); Red Cell Distribution Width 19.2 % (11.5-14.5); Segmented Neutrophils % 65.5 %; White Blood Count 7.7 K/mcL (4.3-11.1)
[2021-12-25 03:31] LABS: Hemoglobin 8.5 g/dL (11.5-15.4)
[2021-12-25] MEDS: Ipratropium/Albuterol Neb 3 ML IH SCH ×2 (03:45→09:26)
[2021-12-25 03:46] LABS: Calcium 8.9 mg/dL (8.6-10.3); Potassium 4.3 mEq/L (3.5-5.1)
[2021-12-25] MEDS: *HR* Heparin 5,000 UNIT/ML VIAL SQ SCH ×2 (05:24→18:10)
[2021-12-25] MEDS: Insulin LISPRO 300 UNITS/3 ML VIAL SUBQ SCH ×4 (07:05→20:29)
[2021-12-25] MEDS: *HR* OxyCODONE/APAP 10/325 TABLET PO PRN ×2 (07:55→20:41)
[2021-12-25] MEDS: cefTRIAXone 1,000 MG in 0.9 % Sodium Chloride 10 ML IVP SCH (07:55)
[2021-12-25] MEDS: Isosorbide MONOnitrate (24 HR) 60 MG TAB.ER.24H PO SCH (07:59)
[2021-12-25] MEDS: Sennosides/Docusate Sodium TABLET PO SCH ×2 (07:59→20:38)
[2021-12-25] MEDS: Gabapentin 400 MG CAPSULE PO SCH ×3 (07:59→20:38)
[2021-12-25] MEDS: amLODIPine 5 MG TABLET PO SCH (07:59)
[2021-12-25] MEDS: lisinopriL 20 MG TABLET PO SCH (08:00)
[2021-12-25] MEDS: Insulin DETEMIR 100 UNIT/ML X5UNITS SUBQ SCH ×2 (08:00→20:38)
[2021-12-25] MEDS: allopurinoL 300 MG TABLET PO SCH (08:00)
[2021-12-25] MEDS: Aspirin 81 MG TAB.CHEW PO SCH (08:00)
[2021-12-25] MEDS: Budesonide/Formoterol 160/4.5 1 PUFF INH IH SCH ×2 (09:27→20:01)
[2021-12-25 09:34] LABS: Kappa Qnt Free Light Chains 62.76 mg/L (3.30-19.40); Lambda Qnt Free Light Chains 108.73 mg/L (5.71-26.30)
[2021-12-25 09:39] LABS: ANA IgG by ELISA NONE DETECTED (None Detected)
[2021-12-25] MEDS: Lactulose Oral Soln 20 GM/30 ML UDC PO PRN (10:36)
[2021-12-25] MEDS ORDERED: Ipratropium/Albuterol Neb 3 ML IH PRN (14:01)
[2021-12-25] MEDS: metroNIDAZOLE 500 MG TABLET PO SCH ×2 (14:22→20:38)
[2021-12-25] MEDS: Cefepime HCl 2,000 MG in 0.9 % Sodium Chloride 20 ML IVP SCH (18:08)
[2021-12-25] MEDS: Vancomycin 1,250 MG/262.5 ML IV.SOLN IVPB SCH (18:10)
[2021-12-25] MEDS: ROPINIROLE PO SCH (20:37)
[2021-12-25] MEDS: ALPRAZolam 1 MG TABLET PO SCH (20:38)
[2021-12-25] MEDS: Melatonin 3 MG TABLET PO PRN (20:45)
[2021-12-26] MEDS: Cefepime HCl 2,000 MG in 0.9 % Sodium Chloride 20 ML IVP SCH ×2 (06:07→16:21)
[2021-12-26] MEDS: *HR* Heparin 5,000 UNIT/ML VIAL SQ SCH ×2 (06:08→16:16)
[2021-12-26 06:22] LABS: Basophils % 0.3 %; Eosinophils # 0.3 K/mcL (0.0-0.6); Eosinophils % 2.3 %; Hematocrit 29.2 % (35.3-44.9); Immature Granulocytes % 1.6 % (0-4); Lymphocytes # 1.5 K/mcL (0.6-4.6); Mean Corpuscular HGB Conc 30.8 g/dL (31.6-35.5); Mean Corpuscular Hemoglobin 27.5 pg (28.0-33.3); Mean Corpuscular Volume 89.3 fL (83.0-100.0); Mean Platelet Volume 10.6 fL (9.4-12.4); Monocytes # 0.7 K/mcL (0.0-1.3); Neutrophils # 8.2 K/mcL (1.6-8.9); Platelet Count 206 K/mcL (140-400); Red Blood Count 3.27 M/mcL (3.82-4.97); Red Cell Distribution Width 19.2 % (11.5-14.5); Segmented Neutrophils % 75.8 %; White Blood Count 10.8 K/mcL (4.3-11.1)
[2021-12-26 06:49] LABS: Calcium 9.4 mg/dL (8.6-10.3); Potassium 4.6 mEq/L (3.5-5.1)
[2021-12-26] MEDS: Budesonide/Formoterol 160/4.5 1 PUFF INH IH SCH ×2 (07:51→19:38)
[2021-12-26] MEDS: lisinopriL 20 MG TABLET PO SCH (08:23)
[2021-12-26] MEDS: Lactulose Oral Soln 20 GM/30 ML UDC PO PRN (08:23)
[2021-12-26] MEDS: metroNIDAZOLE 500 MG TABLET PO SCH ×3 (08:24→20:03)
[2021-12-26] MEDS: amLODIPine 5 MG TABLET PO SCH (08:24)
[2021-12-26] MEDS: allopurinoL 300 MG TABLET PO SCH (08:24)
[2021-12-26] MEDS: Gabapentin 400 MG CAPSULE PO SCH ×3 (08:24→20:03)
[2021-12-26] MEDS: Sennosides/Docusate Sodium TABLET PO SCH ×2 (08:24→20:03)
[2021-12-26] MEDS: *HR* OxyCODONE/APAP 10/325 TABLET PO PRN ×2 (08:27→23:33)
[2021-12-26] MEDS: Isosorbide MONOnitrate (24 HR) 60 MG TAB.ER.24H PO SCH (08:27)
[2021-12-26] MEDS: Aspirin 81 MG TAB.CHEW PO SCH (08:27)
[2021-12-26] MEDS: Insulin DETEMIR 100 UNIT/ML X5UNITS SUBQ SCH ×2 (08:27→20:03)
[2021-12-26] MEDS: Insulin LISPRO 300 UNITS/3 ML VIAL SUBQ SCH ×4 (08:28→20:03)
[2021-12-26] MEDS ORDERED: Lactulose Oral Soln 20 GM/30 ML UDC PO ONE (09:27)
[2021-12-26 10:00] LABS: Alpha 2 Globulin (PEP) 1.01 g/dL (0.48-1.05); Beta Globulin (PEP) 0.98 g/dL (0.48-1.10)
[2021-12-26 13:19] LABS: IFE Reflexed NOT DONE
[2021-12-26] MEDS: Ondansetron 4 MG/2 ML VIAL IVP PRN (13:26)
[2021-12-26] MEDS ORDERED: polyethylene glycoL 3350 17 GM POWD.PACK PO ONE (15:10)
[2021-12-26] MEDS: Vancomycin 1,250 MG/262.5 ML IV.SOLN IVPB SCH (18:28)
[2021-12-26] MEDS ORDERED: 0.9 % Sodium Chloride 1,000 ML IVC SCH (18:30)
[2021-12-26] MEDS: ROPINIROLE PO SCH (20:02)
[2021-12-26] MEDS: ALPRAZolam 1 MG TABLET PO SCH (20:03)
[2021-12-27] MEDS: *HR* Heparin 5,000 UNIT/ML VIAL SQ SCH ×2 (05:51→18:08)
[2021-12-27] MEDS: Cefepime HCl 2,000 MG in 0.9 % Sodium Chloride 20 ML IVP SCH (05:51)
[2021-12-27 07:05] LABS: Basophils % 0.2 %; Eosinophils # 0.2 K/mcL (0.0-0.6); Eosinophils % 1.5 %; Hematocrit 26.1 % (35.3-44.9); Hemoglobin 7.9 g/dL (11.5-15.4); Lymphocytes # 2.1 K/mcL (0.6-4.6); Lymphocytes % 17.6 %; Mean Corpuscular HGB Conc 30.3 g/dL (31.6-35.5); Mean Corpuscular Hemoglobin 27.4 pg (28.0-33.3); Mean Corpuscular Volume 90.6 fL (83.0-100.0); Mean Platelet Volume 10.5 fL (9.4-12.4); Monocytes # 0.8 K/mcL (0.0-1.3); Monocytes % 6.6 %; Neutrophils # 8.8 K/mcL (1.6-8.9); Platelet Count 182 K/mcL (140-400); Red Blood Count 2.88 M/mcL (3.82-4.97); Red Cell Distribution Width 19.2 % (11.5-14.5); Segmented Neutrophils % 73.1 %
[2021-12-27 07:37] LABS: Calcium 8.6 mg/dL (8.6-10.3); Potassium 5.5 mEq/L (3.5-5.1)
[2021-12-27] MEDS: Budesonide/Formoterol 160/4.5 1 PUFF INH IH SCH ×2 (07:57→19:56)
[2021-12-27] MEDS ORDERED: Calcium Gluconate 1gm/50mL 1 GM/50 ML BAG IVPB ONE (08:24)
[2021-12-27] MEDS ORDERED: SODIUM ZIRCONIUM CYCLOSILICATE 5 GM POWD.PACK PO SCH (09:00)
[2021-12-27] MEDS: metroNIDAZOLE 500 MG TABLET PO SCH ×3 (09:17→21:23)
[2021-12-27] MEDS: Sennosides/Docusate Sodium TABLET PO SCH ×2 (09:17→21:23)
[2021-12-27] MEDS: Aspirin 81 MG TAB.CHEW PO SCH (09:17)
[2021-12-27] MEDS: Isosorbide MONOnitrate (24 HR) 60 MG TAB.ER.24H PO SCH (09:17)
[2021-12-27] MEDS: allopurinoL 300 MG TABLET PO SCH (09:17)
[2021-12-27] MEDS: amLODIPine 5 MG TABLET PO SCH (09:17)
[2021-12-27] MEDS: Gabapentin 400 MG CAPSULE PO SCH ×3 (09:18→21:23)
[2021-12-27] MEDS: Insulin LISPRO 300 UNITS/3 ML VIAL SUBQ SCH ×4 (09:18→21:22)
[2021-12-27] MEDS: Insulin DETEMIR 100 UNIT/ML X5UNITS SUBQ SCH ×2 (09:41→21:22)
[2021-12-27] MEDS: lisinopriL 20 MG TABLET PO SCH (12:08)
[2021-12-27 15:03] LABS: Calcium 8.8 mg/dL (8.6-10.3); Potassium 5.5 mEq/L (3.5-5.1)
[2021-12-27] MEDS: cefTRIAXone 2,000 MG in 0.9 % Sodium Chloride 20 ML IVP SCH (15:47)
[2021-12-27] MEDS: 0.9 % Sodium Chloride 1,000 ML IVC SCH (15:48)
[2021-12-27] MEDS: DAPTOmycin 500 MG in 0.9 % Sodium Chloride 100 ML IVPB SCH (15:50)
[2021-12-27] MEDS: ROPINIROLE PO SCH (21:22)
[2021-12-27] MEDS: ALPRAZolam 1 MG TABLET PO SCH (21:23)
[2021-12-27] MEDS: *HR* OxyCODONE/APAP 10/325 TABLET PO PRN (23:46)
[2021-12-28 02:08] LABS: Basophils % 0.4 %; Eosinophils # 0.2 K/mcL (0.0-0.6); Eosinophils % 1.8 %; Hematocrit 24.6 % (35.3-44.9); Hemoglobin 7.5 g/dL (11.5-15.4); Immature Granulocytes % 0.8 % (0-4); Lymphocytes # 1.7 K/mcL (0.6-4.6); Lymphocytes % 19.8 %; Mean Corpuscular HGB Conc 30.5 g/dL (31.6-35.5); Mean Corpuscular Hemoglobin 27.6 pg (28.0-33.3); Mean Corpuscular Volume 90.4 fL (83.0-100.0); Mean Platelet Volume 10.7 fL (9.4-12.4); Monocytes # 0.6 K/mcL (0.0-1.3); Monocytes % 6.9 %; Platelet Count 170 K/mcL (140-400); Red Blood Count 2.72 M/mcL (3.82-4.97); Red Cell Distribution Width 19.1 % (11.5-14.5); Segmented Neutrophils % 70.3 %; White Blood Count 8.5 K/mcL (4.3-11.1)
[2021-12-28 02:30] LABS: Calcium 8.6 mg/dL (8.6-10.3); Potassium 4.5 mEq/L (3.5-5.1)
[2021-12-28] MEDS: 0.9 % Sodium Chloride 1,000 ML IVC SCH (06:01)
[2021-12-28] MEDS: *HR* Heparin 5,000 UNIT/ML VIAL SQ SCH ×2 (06:01→17:10)
[2021-12-28 07:21] LABS: ANCA IFA Titer <1:20 (<1:20)
[2021-12-28] MEDS: Insulin LISPRO 300 UNITS/3 ML VIAL SUBQ SCH ×4 (07:41→20:14)
[2021-12-28] MEDS: metroNIDAZOLE 500 MG TABLET PO SCH ×3 (07:41→20:10)
[2021-12-28] MEDS: Sennosides/Docusate Sodium TABLET PO SCH ×2 (07:41→20:13)
[2021-12-28] MEDS: Gabapentin 400 MG CAPSULE PO SCH ×3 (07:42→20:13)
[2021-12-28] MEDS: Isosorbide MONOnitrate (24 HR) 60 MG TAB.ER.24H PO SCH (07:42)
[2021-12-28] MEDS: Aspirin 81 MG TAB.CHEW PO SCH (07:42)
[2021-12-28] MEDS: allopurinoL 300 MG TABLET PO SCH (07:42)
[2021-12-28] MEDS: Insulin DETEMIR 100 UNIT/ML X5UNITS SUBQ SCH ×2 (07:44→20:26)
[2021-12-28] MEDS: amLODIPine 5 MG TABLET PO SCH (07:44)
[2021-12-28] MEDS: Budesonide/Formoterol 160/4.5 1 PUFF INH IH SCH ×2 (07:51→21:01)
[2021-12-28 09:33] LABS: ANCA IFA Pattern NONE DETECTED (None Detected); Serine Protease-3 Antibody 1 AU/mL (0-19)
[2021-12-28] MEDS: *HR* OxyCODONE/APAP 10/325 TABLET PO PRN ×2 (10:15→17:09)
[2021-12-28] MEDS: Lactulose Oral Soln 20 GM/30 ML UDC PO PRN (15:25)
[2021-12-28] MEDS: DAPTOmycin 500 MG in 0.9 % Sodium Chloride 100 ML IVPB SCH (15:44)
[2021-12-28] MEDS: cefTRIAXone 2,000 MG in 0.9 % Sodium Chloride 20 ML IVP SCH (15:44)
[2021-12-28] MEDS ORDERED: Iopamidol - 370 500 ML MLS IVP ONE (17:42)
[2021-12-28 18:22] LABS: VBG HCO3 21 mEq/L (21-27); VBG PCO2 28 mmHg (41-51); VBG PH 7.48 pH Units (7.32-7.42); VBG PO2 196 mmHg (25-50)
[2021-12-28] MEDS ORDERED: Furosemide 20 MG/2 ML VIAL IVP ONE (18:46)
[2021-12-28] MEDS: Ondansetron 4 MG/2 ML VIAL IVP PRN (20:09)
[2021-12-28] MEDS: ALPRAZolam 1 MG TABLET PO SCH (20:12)
[2021-12-28] MEDS: ROPINIROLE PO SCH (20:12)
[2021-12-29 02:15] LABS: Basophils % 0.3 %; Eosinophils # 0.2 K/mcL (0.0-0.6); Eosinophils % 1.6 %; Hematocrit 24.7 % (35.3-44.9); Hemoglobin 7.5 g/dL (11.5-15.4); Immature Granulocytes % 0.5 % (0-4); Lymphocytes # 1.6 K/mcL (0.6-4.6); Lymphocytes % 16.9 %; Mean Corpuscular HGB Conc 30.4 g/dL (31.6-35.5); Mean Corpuscular Hemoglobin 27.2 pg (28.0-33.3); Mean Corpuscular Volume 89.5 fL (83.0-100.0); Mean Platelet Volume 10.3 fL (9.4-12.4); Monocytes # 0.7 K/mcL (0.0-1.3); Monocytes % 7.8 %; Neutrophils # 6.8 K/mcL (1.6-8.9); Platelet Count 189 K/mcL (140-400); Red Blood Count 2.76 M/mcL (3.82-4.97); Red Cell Distribution Width 19.1 % (11.5-14.5); Segmented Neutrophils % 72.9 %; White Blood Count 9.3 K/mcL (4.3-11.1)
[2021-12-29 02:36] LABS: BUN/Creatinine Ratio 31 (6-26); Blood Urea Nitrogen 32 mg/dL (8-23); Calcium 9.2 mg/dL (8.6-10.3); Carbon Dioxide 23 mEq/L (23-29); Chloride 103 mEq/L (98-107); Glucose 95 mg/dL (70-105); Osmolality,Calculated 285 (280-300); Potassium 4.4 mEq/L (3.5-5.1); Sodium 134 mEq/L (136-145); eGFR For African Americans > 60 (> 60); eGFR For Non-African Americans 54 (> 60)
[2021-12-29] MEDS ORDERED: Acetaminophen IV 1,000 MG/100 ML BAG IVPB ONE ×2 (07:00→08:00)
[2021-12-29] MEDS ORDERED: Famotidine 20 MG/2 ML VIAL IVP ONE (07:00)
[2021-12-29] MEDS: Budesonide/Formoterol 160/4.5 1 PUFF INH IH SCH ×2 (07:45→20:31)
[2021-12-29] MEDS: allopurinoL 300 MG TABLET PO SCH (07:59)
[2021-12-29] MEDS: amLODIPine 5 MG TABLET PO SCH (07:59)
[2021-12-29] MEDS: Aspirin 81 MG TAB.CHEW PO SCH (07:59)
[2021-12-29] MEDS: Sennosides/Docusate Sodium TABLET PO SCH ×2 (07:59→20:36)
[2021-12-29] MEDS: Isosorbide MONOnitrate (24 HR) 60 MG TAB.ER.24H PO SCH (08:00)
[2021-12-29] MEDS: Gabapentin 400 MG CAPSULE PO SCH ×3 (08:00→20:35)
[2021-12-29] MEDS: metroNIDAZOLE 500 MG TABLET PO SCH ×3 (08:00→20:36)
[2021-12-29] MEDS: *HR* Heparin 5,000 UNIT/ML VIAL SQ SCH ×2 (08:01→16:45)
[2021-12-29] MEDS: Insulin LISPRO 300 UNITS/3 ML VIAL SUBQ SCH ×4 (08:01→20:28)
[2021-12-29] MEDS ORDERED: Furosemide 40 MG/4 ML VIAL IVP ONE (09:25)
[2021-12-29] MEDS: Insulin DETEMIR 100 UNIT/ML X5UNITS SUBQ SCH ×2 (10:29→20:45)
[2021-12-29] MEDS ORDERED: Iopamidol - 370 500 ML MLS IVP ONE (13:40)
[2021-12-29] MEDS: cefTRIAXone 2,000 MG in 0.9 % Sodium Chloride 20 ML IVP SCH (13:47)
[2021-12-29] MEDS: DAPTOmycin 500 MG in 0.9 % Sodium Chloride 100 ML IVPB SCH (14:51)
[2021-12-29] MEDS: hydrALAZINE 25 MG TABLET PO SCH (16:45)
[2021-12-29] MEDS: ROPINIROLE PO SCH (20:35)
[2021-12-29] MEDS: ALPRAZolam 1 MG TABLET PO SCH (20:36)
[2021-12-29] MEDS: Furosemide 40 MG/4 ML VIAL IVP SCH (20:36)
[2021-12-30 01:49] LABS: Basophils % 0.3 %; Eosinophils # 0.2 K/mcL (0.0-0.6); Eosinophils % 1.5 %; Immature Granulocytes % 0.5 % (0-4); Lymphocytes # 1.2 K/mcL (0.6-4.6); Lymphocytes % 10.9 %; Mean Corpuscular HGB Conc 30.8 g/dL (31.6-35.5); Mean Corpuscular Hemoglobin 27.5 pg (28.0-33.3); Mean Corpuscular Volume 89.3 fL (83.0-100.0); Mean Platelet Volume 10.2 fL (9.4-12.4); Monocytes # 0.6 K/mcL (0.0-1.3); Monocytes % 5.5 %; Platelet Count 194 K/mcL (140-400); Red Blood Count 2.91 M/mcL (3.82-4.97); Red Cell Distribution Width 19.1 % (11.5-14.5); Segmented Neutrophils % 81.3 %
[2021-12-30 01:57] LABS: Calcium 9.6 mg/dL (8.6-10.3); Potassium 4.7 mEq/L (3.5-5.1)
[2021-12-30] MEDS: hydrALAZINE 25 MG TABLET PO SCH ×4 (05:30→22:59)
[2021-12-30] MEDS: *HR* Heparin 5,000 UNIT/ML VIAL SQ SCH ×2 (05:48→17:47)
[2021-12-30] MEDS: Budesonide/Formoterol 160/4.5 1 PUFF INH IH SCH ×2 (07:46→20:12)
[2021-12-30] MEDS: Isosorbide MONOnitrate (24 HR) 60 MG TAB.ER.24H PO SCH (08:23)
[2021-12-30] MEDS: Gabapentin 400 MG CAPSULE PO SCH ×3 (08:23→19:45)
[2021-12-30] MEDS: Sennosides/Docusate Sodium TABLET PO SCH ×2 (08:24→19:45)
[2021-12-30] MEDS: metroNIDAZOLE 500 MG TABLET PO SCH ×3 (08:24→19:44)
[2021-12-30] MEDS: amLODIPine 5 MG TABLET PO SCH (08:24)
[2021-12-30] MEDS: Aspirin 81 MG TAB.CHEW PO SCH (08:24)
[2021-12-30] MEDS: Insulin DETEMIR 100 UNIT/ML X5UNITS SUBQ SCH ×2 (08:25→21:30)
[2021-12-30] MEDS: allopurinoL 300 MG TABLET PO SCH (08:25)
[2021-12-30] MEDS: Insulin LISPRO 300 UNITS/3 ML VIAL SUBQ SCH ×4 (08:26→21:25)
[2021-12-30] MEDS: Furosemide 40 MG/4 ML VIAL IVP SCH (08:26)
[2021-12-30] MEDS: cefTRIAXone 2,000 MG in 0.9 % Sodium Chloride 20 ML IVP SCH (13:57)
[2021-12-30] MEDS: DAPTOmycin 500 MG in 0.9 % Sodium Chloride 100 ML IVPB SCH (14:01)
[2021-12-30] MEDS: ALPRAZolam 1 MG TABLET PO SCH (19:45)
[2021-12-30] MEDS: ROPINIROLE PO SCH (19:45)
[2021-12-30] MEDS: *HR* OxyCODONE/APAP 10/325 TABLET PO PRN (21:29)
[2021-12-31 01:54] LABS: Hematocrit 25.2 % (35.3-44.9); Hemoglobin 7.9 g/dL (11.5-15.4); Mean Corpuscular HGB Conc 31.3 g/dL (31.6-35.5); Mean Corpuscular Hemoglobin 27.6 pg (28.0-33.3); Mean Corpuscular Volume 88.1 fL (83.0-100.0); Mean Platelet Volume 10.2 fL (9.4-12.4); Platelet Count 193 K/mcL (140-400); Red Blood Count 2.86 M/mcL (3.82-4.97); Red Cell Distribution Width 18.9 % (11.5-14.5); White Blood Count 8.2 K/mcL (4.3-11.1)
[2021-12-31 02:16] LABS: Calcium 9.3 mg/dL (8.6-10.3); Phosphorous 2.6 mg/dL (2.7-4.5); Potassium 4.4 mEq/L (3.5-5.1)
[2021-12-31] MEDS: *HR* Heparin 5,000 UNIT/ML VIAL SQ SCH ×2 (03:39→17:04)
[2021-12-31] MEDS: hydrALAZINE 25 MG TABLET PO SCH ×3 (07:57→23:26)
[2021-12-31] MEDS: Aspirin 81 MG TAB.CHEW PO SCH (07:57)
[2021-12-31] MEDS: Gabapentin 400 MG CAPSULE PO SCH ×3 (07:57→20:49)
[2021-12-31] MEDS: Isosorbide MONOnitrate (24 HR) 60 MG TAB.ER.24H PO SCH (07:57)
[2021-12-31] MEDS: metroNIDAZOLE 500 MG TABLET PO SCH ×3 (07:57→20:49)
[2021-12-31] MEDS: allopurinoL 300 MG TABLET PO SCH (07:57)
[2021-12-31] MEDS: Sennosides/Docusate Sodium TABLET PO SCH ×2 (07:57→20:49)
[2021-12-31] MEDS: amLODIPine 5 MG TABLET PO SCH (07:57)
[2021-12-31] MEDS: Insulin LISPRO 300 UNITS/3 ML VIAL SUBQ SCH ×4 (07:58→20:50)
[2021-12-31] MEDS: Insulin DETEMIR 100 UNIT/ML X5UNITS SUBQ SCH ×2 (08:15→20:50)
[2021-12-31] MEDS: lisinopriL 20 MG TABLET PO SCH (08:17)
[2021-12-31] MEDS ORDERED: Furosemide 40 MG/4 ML VIAL IVP SCH (09:00)
[2021-12-31] MEDS: Budesonide/Formoterol 160/4.5 1 PUFF INH IH SCH ×2 (10:39→20:23)
[2021-12-31] MEDS: cefTRIAXone 2,000 MG in 0.9 % Sodium Chloride 20 ML IVP SCH (13:17)
[2021-12-31] MEDS: DAPTOmycin 500 MG in 0.9 % Sodium Chloride 100 ML IVPB SCH (13:36)
[2021-12-31] MEDS: ALPRAZolam 1 MG TABLET PO SCH (20:48)
[2021-12-31] MEDS: ROPINIROLE PO SCH (20:49)
[2021-12-31] MEDS: *HR* OxyCODONE/APAP 10/325 TABLET PO PRN (23:25)
[2021-12-31] MEDS: Melatonin 3 MG TABLET PO PRN (23:25)
[2022-01-01 03:29] LABS: Hematocrit 25.8 % (35.3-44.9); Hemoglobin 7.9 g/dL (11.5-15.4); Mean Corpuscular HGB Conc 30.6 g/dL (31.6-35.5); Mean Corpuscular Hemoglobin 27.7 pg (28.0-33.3); Mean Corpuscular Volume 90.5 fL (83.0-100.0); Mean Platelet Volume 10.2 fL (9.4-12.4); Platelet Count 211 K/mcL (140-400); Red Blood Count 2.85 M/mcL (3.82-4.97)
[2022-01-01 03:40] LABS: Calcium 9.2 mg/dL (8.6-10.3); Phosphorous 3.8 mg/dL (2.7-4.5); Potassium 4.6 mEq/L (3.5-5.1)
[2022-01-01] MEDS: *HR* Heparin 5,000 UNIT/ML VIAL SQ SCH (04:49)
[2022-01-01] MEDS: Insulin LISPRO 300 UNITS/3 ML VIAL SUBQ SCH ×3 (07:46→11:10)
[2022-01-01] MEDS: Isosorbide MONOnitrate (24 HR) 60 MG TAB.ER.24H PO SCH (07:47)
[2022-01-01] MEDS: hydrALAZINE 25 MG TABLET PO SCH (07:47)
[2022-01-01] MEDS: metroNIDAZOLE 500 MG TABLET PO SCH (07:47)
[2022-01-01] MEDS: Sennosides/Docusate Sodium TABLET PO SCH (07:47)
[2022-01-01] MEDS: amLODIPine 5 MG TABLET PO SCH (07:47)
[2022-01-01] MEDS: Aspirin 81 MG TAB.CHEW PO SCH (07:47)
[2022-01-01] MEDS: allopurinoL 300 MG TABLET PO SCH (07:47)
[2022-01-01] MEDS: Gabapentin 400 MG CAPSULE PO SCH (07:48)
[2022-01-01] MEDS: Insulin DETEMIR 100 UNIT/ML X5UNITS SUBQ SCH (07:53)
[2022-01-01] MEDS: Budesonide/Formoterol 160/4.5 1 PUFF INH IH SCH (08:24)
[2022-01-01] MEDS ORDERED: Furosemide 20 MG TABLET PO SCH (09:00)
[2022-01-01 10:48] VITALS: BP 160/42; PULSE 73; TEMP 98.6; O2SAT 97
[2022-01-01] MEDS: DAPTOmycin 500 MG in 0.9 % Sodium Chloride 100 ML IVPB SCH (12:02)
[2022-01-01] MEDS: cefTRIAXone 2,000 MG in 0.9 % Sodium Chloride 20 ML IVP SCH (12:02)
== END 2022-01-01 15:35 | disposition home health service (06) | DRG 255 ==
LOC: 2NENU → SUATTDRO 11:01
PROVIDERS: ADMIT Family Medicine; ATTEND Family Medicine

== ENCOUNTER 2022-02-06 19:37 | Inpatient (IN) ==
[2022-02-06] MEDS ORDERED: cefTRIAXone 1,000 MG in 0.9 % Sodium Chloride 10 ML IVP ONE (19:43)
[2022-02-06] MEDS ORDERED: Azithromycin 500 MG in 0.9 % Sodium Chloride 250 ML IVPB ONE (19:43)
[2022-02-06] MEDS ORDERED: methylPREDNISolone 125 MG/2 ML VIAL IVP ONE (19:43)
[2022-02-06] MEDS ORDERED: Ipratropium/Albuterol Neb 3 ML IH ONE (19:44)
[2022-02-06] MEDS ORDERED: *HR* LORazepam 2 MG/ML VIAL IVP ONE (20:45)
[2022-02-06 20:47] LABS: Basophils # 0.1 K/mcL (0.0-0.2); Basophils % 0.4 %; Eosinophils # 0.1 K/mcL (0.0-0.6); Eosinophils % 0.8 %; Hemoglobin 9.3 g/dL (11.5-15.4); Immature Granulocytes % 0.6 % (0-4); Lymphocytes # 4.8 K/mcL (0.6-4.6); Lymphocytes % 33.9 %; Mean Corpuscular HGB Conc 29.1 g/dL (31.6-35.5); Mean Corpuscular Hemoglobin 27.4 pg (28.0-33.3); Mean Corpuscular Volume 94.1 fL (83.0-100.0); Mean Platelet Volume 10.8 fL (9.4-12.4); Monocytes # 0.9 K/mcL (0.0-1.3); Monocytes % 6.6 %; Neutrophils # 8.1 K/mcL (1.6-8.9); Platelet Count 232 K/mcL (140-400); Red Cell Distribution Width 19.3 % (11.5-14.5); Segmented Neutrophils % 57.7 %; White Blood Count 14.1 K/mcL (4.3-11.1)
[2022-02-06 21:08] LABS: Calcium 9.6 mg/dL (8.6-10.3); Potassium 4.4 mEq/L (3.5-5.1)
[2022-02-06 21:09] LABS: Troponin I 0.03 ng/mL (< 0.04)
[2022-02-06] MEDS ORDERED: Iopamidol - 370 500 ML MLS IVP ONE (21:54)
[2022-02-06] MEDS ORDERED: Furosemide 40 MG/4 ML VIAL IVP ONE (22:09)
[2022-02-06 22:24] LABS: ABG Base Excess -3 mEq/L (-2 to 3); ABG HCO3 21 mEq/L (21-27); ABG Oxygen Saturation 99 % (95-98); ABG PCO2 36 mmHg (35-45); ABG PH 7.38 pH Units (7.32-7.45); ABG PO2 146 mmHg (85-104); ABG TCO2 23 mEq/L (20-26); Blood Gas Modality avaps; Blood Gas VT 450 cc
[2022-02-06 23:25] LABS: Bacteria,Urine Few per hpf (None-Few); Bilirubin,Urine Negative (Negative); Blood,Urine Negative (Negative); Clarity,Urine Clear (Clear); Color,Urine Light-Yellow (Yellow); Glucose,Urine (UA) Normal (Normal); Ketones,Urine Negative (Negative); Leukocyte Esterase,Urine Negative (Negative); Mucus,Urine Few per lpf (None-Few); Nitrite,Urine Negative (Negative); Protein,Urine 200 mg/dL (Neg-Trace); RBC,Urine 0-3 per hpf (0-3); Specific Gravity,Urine 1.024 (1.010-1.025); Squamous Epithelial Cell,Urine Few per hpf (None-Few); Urobilinogen,Urine Normal (Normal); WBC,Urine 0-3 per hpf (0-3)
[2022-02-06 23:34] LABS: Influenza A PCR Negative (Negative); Influenza B PCR Negative (Negative); Resp. Syncytial Virus PCR Negative (Negative); SARS-CoV-2 by PCR (In House) Negative (Negative)
[2022-02-07] MEDS ORDERED: Acetaminophen 325 MG TABLET PO PRN (00:19)
[2022-02-07] MEDS ORDERED: Naloxone 0.4 MG/ML INJ IVP PRN (00:19)
[2022-02-07] MEDS ORDERED: Ondansetron 4 MG/2 ML VIAL IVP PRN (00:19)
[2022-02-07 00:24] LABS: Amphetamine Screen,Urine Negative ng/mL (Cutoff=1000); Barbiturate Screen,Urine Negative ng/mL (Cutoff=200); Benzodiazepines Screen,Urine Negative ng/mL (Cutoff=200); Cannabinoid Screen,Urine Negative ng/mL (Cutoff = 50); Cocaine Screen,Urine Negative ng/mL (Cutoff= 300); Opiate Screen,Urine Negative ng/mL (Cutoff=300); Phencyclidine Screen,Urine Negative ng/mL (Cutoff=25)
[2022-02-07] MEDS ORDERED: D5% in Water 1,000 ML IVC PRN (00:32)
[2022-02-07] MEDS ORDERED: Dextrose Gel 15 GM/37.5 ML TUBE PO PRN ×2 (00:32)
[2022-02-07] MEDS ORDERED: *HR* Dextrose 50 % in Water (Syg) 50 ML SYRINGE IVP PRN (00:32)
[2022-02-07 00:52] LABS: Acetaminophen < 10 mcg/mL (10-20); Alanine Aminotransferase 15 Units/L (7-52); Albumin 3.5 g/dL (3.5-5.7); Albumin/Globulin Ratio 0.8 (1.1-2.2); Alkaline Phosphatase 84 Units/L (34-104); Aspartate Amino Transferase 15 Units/L (13-39); Bilirubin,Indirect 0.3 mg/dL (0.0-1.0); Bilirubin,Total 0.3 mg/dL (0.3-1.0); Creatine Kinase 82 Units/L (30-223); Ethanol < 10 mg/dL (Less than 10); Globulin 4.3 g/dL (2.4-3.5); Salicylate < 2.5 mg/dL (15.0-30.0); Total Protein 7.8 g/dL (6.4-8.9)
[2022-02-07 01:11] LABS: Thyroid Stimulating Hormone 5.804 mcIU/mL (0.340-5.600)
[2022-02-07 01:20] LABS: ABG Base Excess -1 mEq/L (-2 to 3); ABG HCO3 24 mEq/L (21-27); ABG Oxygen Saturation 99 % (95-98); ABG PCO2 43 mmHg (35-45); ABG PH 7.36 pH Units (7.32-7.45); ABG PO2 154 mmHg (85-104); ABG TCO2 26 mEq/L (20-26)
[2022-02-07 01:58] LABS: C-Reactive Protein 85 mg/L (Less than 10)
[2022-02-07 03:32] LABS: Estimated Average Glucose 134 mg/dl; Hemoglobin A1C 6.3 %
[2022-02-07] MEDS: Ipratropium/Albuterol Neb 3 ML IH SCH ×6 (03:44→23:02)
[2022-02-07 06:28] LABS: Basophils % 0.1 %; Hematocrit 26.5 % (35.3-44.9); Hemoglobin 7.9 g/dL (11.5-15.4); Immature Granulocytes % 0.6 % (0-4); Lymphocytes # 0.6 K/mcL (0.6-4.6); Lymphocytes % 7.1 %; Mean Corpuscular HGB Conc 29.8 g/dL (31.6-35.5); Mean Corpuscular Hemoglobin 27.2 pg (28.0-33.3); Mean Corpuscular Volume 91.4 fL (83.0-100.0); Mean Platelet Volume 10.7 fL (9.4-12.4); Monocytes # 0.1 K/mcL (0.0-1.3); Monocytes % 1.6 %; Neutrophils # 7.5 K/mcL (1.6-8.9); Platelet Count 158 K/mcL (140-400); Red Cell Distribution Width 18.9 % (11.5-14.5); Segmented Neutrophils % 90.6 %; White Blood Count 8.3 K/mcL (4.3-11.1)
[2022-02-07 06:35] LABS: INR 1.2; Prothrombin Time 13.1 Seconds (9.4-12.1)
[2022-02-07 06:38] LABS: Activated Partial Thrombo Time 30.8 Seconds (26.0-36.0)
[2022-02-07 06:42] LABS: Albumin 3.4 g/dL (3.5-5.7); Albumin/Globulin Ratio 0.9 (1.1-2.2); Bilirubin,Total 0.3 mg/dL (0.3-1.0); Calcium 8.9 mg/dL (8.6-10.3); Phosphorous 4.5 mg/dL (2.7-4.5); Potassium 4.4 mEq/L (3.5-5.1); Total Protein 7.4 g/dL (6.4-8.9)
[2022-02-07] MEDS ORDERED: Thiamine (B-1) 100 MG in 0.9 % Sodium Chloride 50 ML IVPB ONE (06:44)
[2022-02-07] MEDS: *HR* Heparin 5,000 UNIT/ML VIAL SQ SCH ×3 (06:46→21:41)
[2022-02-07] MEDS: Insulin LISPRO 300 UNITS/3 ML VIAL SUBQ SCH ×3 (07:00→16:30)
[2022-02-07] MEDS: Budesonide/Formoterol 160/4.5 1 PUFF INH IH SCH ×2 (07:41→20:12)
[2022-02-07] MEDS ORDERED: Cefepime HCl 2,000 MG in 0.9 % Sodium Chloride Mini Bag 100 ML IVPB SCH (08:00)
[2022-02-07] MEDS ORDERED: methylPREDNISolone 125 MG/2 ML VIAL IVP SCH (08:00)
[2022-02-07] MEDS: Furosemide 20 MG/2 ML VIAL IVP SCH (08:59)
[2022-02-07] MEDS ORDERED: Furosemide 40 MG TABLET PO SCH (09:00)
[2022-02-07] MEDS: Chlorhexidine Rinse 15 ML MOUTHWASH MM SCH ×2 (09:00→21:41)
[2022-02-07 09:34] LABS: ABG Base Excess 0 mEq/L (-2 to 3); ABG HCO3 25 mEq/L (21-27); ABG Oxygen Saturation 94 % (95-98); ABG PCO2 40 mmHg (35-45); ABG PO2 70 mmHg (85-104); ABG TCO2 26 mEq/L (20-26); Blood Gas VT 450 cc
[2022-02-07 10:50] LABS: VBG HCO3 23 mEq/L (21-27); VBG PCO2 44 mmHg (41-51); VBG PH 7.32 pH Units (7.32-7.42); VBG PO2 180 mmHg (25-50)
[2022-02-07] MEDS ORDERED: Vancomycin 1,250 MG/262.5 ML IV.SOLN IVPB ONE (14:00)
[2022-02-07 15:46] LABS: Hematocrit 28.9 % (35.3-44.9); Hemoglobin 8.6 g/dL (11.5-15.4); Mean Corpuscular HGB Conc 29.8 g/dL (31.6-35.5); Mean Corpuscular Volume 90.6 fL (83.0-100.0); Mean Platelet Volume 10.5 fL (9.4-12.4); Platelet Count 159 K/mcL (140-400); Red Blood Count 3.19 M/mcL (3.82-4.97); Red Cell Distribution Width 18.6 % (11.5-14.5); White Blood Count 8.6 K/mcL (4.3-11.1)
[2022-02-07] MEDS: MethylPREDNISolone 40 MG/ML VIAL IVP SCH (16:27)
[2022-02-07] MEDS: MetroNIDAZOLE 500 MG/100 ML 500 MG/100 ML BAG IVPB SCH (16:27)
[2022-02-07] MEDS: Azithromycin 500 MG in 0.9 % Sodium Chloride 250 ML IVPB SCH (18:34)
[2022-02-07] MEDS: Cefepime HCl 2,000 MG in 0.9 % Sodium Chloride Mini Bag 100 ML IVPB SCH (21:42)
[2022-02-08] MEDS: MethylPREDNISolone 40 MG/ML VIAL IVP SCH ×2 (00:58→09:23)
[2022-02-08] MEDS: MetroNIDAZOLE 500 MG/100 ML 500 MG/100 ML BAG IVPB SCH ×4 (00:59→23:55)
[2022-02-08] MEDS: Insulin LISPRO 300 UNITS/3 ML VIAL SUBQ SCH ×5 (00:59→23:56)
[2022-02-08] MEDS: Ipratropium/Albuterol Neb 3 ML IH SCH ×6 (04:03→23:26)
[2022-02-08 04:55] LABS: Hematocrit 25.9 % (35.3-44.9); Hemoglobin 7.8 g/dL (11.5-15.4); Mean Corpuscular HGB Conc 30.1 g/dL (31.6-35.5); Mean Corpuscular Hemoglobin 27.4 pg (28.0-33.3); Mean Corpuscular Volume 90.9 fL (83.0-100.0); Mean Platelet Volume 10.8 fL (9.4-12.4); Platelet Count 176 K/mcL (140-400); Red Blood Count 2.85 M/mcL (3.82-4.97); Red Cell Distribution Width 18.7 % (11.5-14.5); White Blood Count 9.7 K/mcL (4.3-11.1)
[2022-02-08 05:04] LABS: INR 1.2; Prothrombin Time 13.3 Seconds (9.4-12.1)
[2022-02-08 05:20] LABS: Calcium 9.1 mg/dL (8.6-10.3); Magnesium 2.3 mg/dL (1.6-2.6); Potassium 4.2 mEq/L (3.5-5.1)
[2022-02-08] MEDS: *HR* Heparin 5,000 UNIT/ML VIAL SQ SCH ×3 (06:40→20:07)
[2022-02-08] MEDS: Budesonide/Formoterol 160/4.5 1 PUFF INH IH SCH ×2 (07:32→19:53)
[2022-02-08] MEDS ORDERED: Regadenoson 0.4 MG/5 ML SYRINGE IVP ONE (08:51)
[2022-02-08] MEDS: Cefepime HCl 2,000 MG in 0.9 % Sodium Chloride Mini Bag 100 ML IVPB SCH ×2 (09:07→20:08)
[2022-02-08] MEDS: Chlorhexidine Rinse 15 ML MOUTHWASH MM SCH ×2 (09:11→20:07)
[2022-02-08] MEDS: Pantoprazole 40 MG VIAL IVP SCH (09:18)
[2022-02-08] MEDS: Furosemide 20 MG/2 ML VIAL IVP SCH (09:23)
[2022-02-08 14:44] LABS: Hemoglobin 8.5 g/dL (11.5-15.4)
[2022-02-08 14:46] LABS: Hematocrit 29.2 % (35.3-44.9); Mean Corpuscular HGB Conc 29.1 g/dL (31.6-35.5); Mean Corpuscular Hemoglobin 26.9 pg (28.0-33.3); Mean Corpuscular Volume 92.4 fL (83.0-100.0); Mean Platelet Volume 10.4 fL (9.4-12.4); Platelet Count 181 K/mcL (140-400); Red Blood Count 3.16 M/mcL (3.82-4.97); Red Cell Distribution Width 18.6 % (11.5-14.5); White Blood Count 9.2 K/mcL (4.3-11.1)
[2022-02-08] MEDS: Gabapentin 400 MG CAPSULE PO SCH ×2 (17:23→20:07)
[2022-02-08] MEDS: *HR* OxyCODONE/APAP 10/325 TABLET PO PRN (17:39)
[2022-02-08] MEDS: Azithromycin 500 MG in 0.9 % Sodium Chloride 250 ML IVPB SCH (17:40)
[2022-02-08] MEDS: Melatonin 3 MG TABLET PO PRN (20:21)
[2022-02-09] MEDS: Ipratropium/Albuterol Neb 3 ML IH SCH ×3 (03:45→11:14)
[2022-02-09 05:18] LABS: Calcium 8.9 mg/dL (8.6-10.3); Potassium 3.8 mEq/L (3.5-5.1)
[2022-02-09 05:23] LABS: Hematocrit 26.9 % (35.3-44.9); Mean Corpuscular HGB Conc 29.7 g/dL (31.6-35.5); Mean Corpuscular Hemoglobin 27.3 pg (28.0-33.3); Mean Corpuscular Volume 91.8 fL (83.0-100.0); Mean Platelet Volume 10.6 fL (9.4-12.4); Platelet Count 182 K/mcL (140-400); Red Blood Count 2.93 M/mcL (3.82-4.97); Red Cell Distribution Width 18.7 % (11.5-14.5); White Blood Count 7.2 K/mcL (4.3-11.1)
[2022-02-09] MEDS: Insulin LISPRO 300 UNITS/3 ML VIAL SUBQ SCH ×4 (06:32→20:32)
[2022-02-09] MEDS: *HR* Heparin 5,000 UNIT/ML VIAL SQ SCH ×3 (06:32→20:30)
[2022-02-09] MEDS: Budesonide/Formoterol 160/4.5 1 PUFF INH IH SCH ×2 (07:35→21:09)
[2022-02-09] MEDS ORDERED: *HR* FentaNYL (PF) 100 MCG/2 ML VIAL ONE (08:01)
[2022-02-09] MEDS ORDERED: Lidocaine -MPF 2% 5 ML VIAL ONE (08:01)
[2022-02-09] MEDS ORDERED: Ondansetron 4 MG/2 ML VIAL ONE (08:01)
[2022-02-09] MEDS ORDERED: lisinopriL 20 MG TABLET PO SCH (09:00)
[2022-02-09] MEDS ORDERED: Nitroglycerin 0.4 MG TAB.SUBL SL PRN (10:49)
[2022-02-09] MEDS: Gabapentin 400 MG CAPSULE PO SCH ×3 (10:55→20:31)
[2022-02-09] MEDS: amLODIPine 5 MG TABLET PO SCH (10:55)
[2022-02-09] MEDS: Chlorhexidine Rinse 15 ML MOUTHWASH MM SCH ×2 (11:05→20:31)
[2022-02-09] MEDS: Pantoprazole 40 MG VIAL IVP SCH (11:09)
[2022-02-09] MEDS: Furosemide 20 MG/2 ML VIAL IVP SCH (11:10)
[2022-02-09] MEDS: Cefepime HCl 2,000 MG in 0.9 % Sodium Chloride Mini Bag 100 ML IVPB SCH ×2 (11:11→20:33)
[2022-02-09] MEDS: MetroNIDAZOLE 500 MG/100 ML 500 MG/100 ML BAG IVPB SCH ×3 (11:18→23:31)
[2022-02-09] MEDS ORDERED: Ipratropium/Albuterol Neb 3 ML IH PRN (15:39)
[2022-02-09] MEDS: Tiotropium 10 INH DOSE IH SCH (16:02)
[2022-02-09] MEDS: Azithromycin 500 MG in 0.9 % Sodium Chloride 250 ML IVPB SCH (17:37)
[2022-02-09] MEDS: *HR* OxyCODONE/APAP 10/325 TABLET PO PRN (19:26)
[2022-02-09] MEDS: Aspirin Enteric Coated 81 MG Tablet PO SCH (20:31)
[2022-02-09] MEDS: Melatonin 3 MG TABLET PO PRN (20:43)
[2022-02-09] MEDS: ALPRAZolam 1 MG TABLET PO SCH (21:18)
[2022-02-10 02:05] LABS: Potassium,Urine 32.4 mEq/L; Protein/Creatinine Ratio,Urine 2.08 mg/mg (0.00-0.20); Sodium, Urine 148.9 mEq/L
[2022-02-10] MEDS: *HR* Heparin 5,000 UNIT/ML VIAL SQ SCH ×3 (05:13→20:28)
[2022-02-10] MEDS: Chlorhexidine Rinse 15 ML MOUTHWASH MM SCH (07:50)
[2022-02-10] MEDS: Cefepime HCl 2,000 MG in 0.9 % Sodium Chloride Mini Bag 100 ML IVPB SCH ×2 (07:50→20:28)
[2022-02-10] MEDS: Pantoprazole 40 MG VIAL IVP SCH (07:51)
[2022-02-10] MEDS: Furosemide 20 MG/2 ML VIAL IVP SCH (07:51)
[2022-02-10] MEDS: MetroNIDAZOLE 500 MG/100 ML 500 MG/100 ML BAG IVPB SCH ×3 (07:51→23:18)
[2022-02-10] MEDS: Gabapentin 400 MG CAPSULE PO SCH ×3 (07:51→20:27)
[2022-02-10] MEDS: amLODIPine 5 MG TABLET PO SCH (07:51)
[2022-02-10] MEDS: Insulin LISPRO 300 UNITS/3 ML VIAL SUBQ SCH ×4 (07:52→20:29)
[2022-02-10] MEDS: Budesonide/Formoterol 160/4.5 1 PUFF INH IH SCH ×2 (08:16→20:57)
[2022-02-10] MEDS: Tiotropium 10 INH DOSE IH SCH (08:18)
[2022-02-10] MEDS: *HR* OxyCODONE/APAP 10/325 TABLET PO PRN (15:54)
[2022-02-10] MEDS: Azithromycin 500 MG in 0.9 % Sodium Chloride 250 ML IVPB SCH (17:34)
[2022-02-10] MEDS: Aspirin Enteric Coated 81 MG Tablet PO SCH (20:27)
[2022-02-10] MEDS: ALPRAZolam 1 MG TABLET PO SCH (20:27)
[2022-02-10] MEDS: Melatonin 3 MG TABLET PO PRN (23:18)
[2022-02-11] MEDS: *HR* Heparin 5,000 UNIT/ML VIAL SQ SCH ×3 (05:09→21:19)
[2022-02-11 05:32] LABS: Basophils % 0.4 %; Eosinophils # 0.2 K/mcL (0.0-0.6); Eosinophils % 3.5 %; Hematocrit 26.2 % (35.3-44.9); Hemoglobin 7.9 g/dL (11.5-15.4); Immature Granulocytes % 1.3 % (0-4); Lymphocytes # 1.4 K/mcL (0.6-4.6); Lymphocytes % 27.1 %; Mean Corpuscular HGB Conc 30.2 g/dL (31.6-35.5); Mean Corpuscular Hemoglobin 27.3 pg (28.0-33.3); Mean Corpuscular Volume 90.7 fL (83.0-100.0); Mean Platelet Volume 10.3 fL (9.4-12.4); Monocytes # 0.4 K/mcL (0.0-1.3); Monocytes % 8.3 %; Neutrophils # 3.1 K/mcL (1.6-8.9); Nucleated Red Blood Cells 0.4 /100 WBC (0); Platelet Count 152 K/mcL (140-400); Red Blood Count 2.89 M/mcL (3.82-4.97); Red Cell Distribution Width 18.7 % (11.5-14.5); Segmented Neutrophils % 59.4 %; White Blood Count 5.2 K/mcL (4.3-11.1)
[2022-02-11 06:03] LABS: BUN/Creatinine Ratio 21 (6-26); Blood Urea Nitrogen 22 mg/dL (8-23); Calcium 8.7 mg/dL (8.6-10.3); Carbon Dioxide 29 mEq/L (23-29); Chloride 100 mEq/L (98-107); Glucose 225 mg/dL (70-105); Osmolality,Calculated 286 (280-300); Potassium 4.2 mEq/L (3.5-5.1); Sodium 133 mEq/L (136-145); eGFR For African Americans > 60 (> 60); eGFR For Non-African Americans 51 (> 60)
[2022-02-11] MEDS: amLODIPine 5 MG TABLET PO SCH (08:02)
[2022-02-11] MEDS: *HR* OxyCODONE/APAP 10/325 TABLET PO PRN (08:02)
[2022-02-11] MEDS: Isosorbide MONOnitrate (24 HR) 60 MG TAB.ER.24H PO SCH (08:03)
[2022-02-11] MEDS: Spironolactone 25 MG TABLET PO SCH (08:03)
[2022-02-11] MEDS: Gabapentin 400 MG CAPSULE PO SCH ×3 (08:03→21:17)
[2022-02-11] MEDS: Cefepime HCl 2,000 MG in 0.9 % Sodium Chloride Mini Bag 100 ML IVPB SCH ×2 (08:04→21:18)
[2022-02-11] MEDS: MetroNIDAZOLE 500 MG/100 ML 500 MG/100 ML BAG IVPB SCH ×3 (08:04→23:45)
[2022-02-11] MEDS: Pantoprazole 40 MG VIAL IVP SCH (08:05)
[2022-02-11] MEDS: Insulin LISPRO 300 UNITS/3 ML VIAL SUBQ SCH ×4 (08:06→21:19)
[2022-02-11] MEDS: Budesonide/Formoterol 160/4.5 1 PUFF INH IH SCH ×2 (09:23→20:30)
[2022-02-11] MEDS: Tiotropium 10 INH DOSE IH SCH (09:23)
[2022-02-11] MEDS ORDERED: Acetaminophen 325 MG TABLET PO PRN (10:13)
[2022-02-11] MEDS ORDERED: *HR* OxyCODONE/APAP 5/325 TABLET PO PRN (14:00)
[2022-02-11] MEDS: Azithromycin 500 MG in 0.9 % Sodium Chloride 250 ML IVPB SCH (16:15)
[2022-02-11] MEDS: Aspirin Enteric Coated 81 MG Tablet PO SCH (21:17)
[2022-02-11] MEDS: Melatonin 3 MG TABLET PO PRN (21:17)
[2022-02-11] MEDS: ALPRAZolam 1 MG TABLET PO SCH (21:17)
[2022-02-12] MEDS: *HR* Heparin 5,000 UNIT/ML VIAL SQ SCH ×2 (05:02→15:05)
[2022-02-12 05:52] LABS: Basophils % 0.5 %; Eosinophils # 0.2 K/mcL (0.0-0.6); Eosinophils % 3.1 %; Hematocrit 27.1 % (35.3-44.9); Hemoglobin 8.1 g/dL (11.5-15.4); Immature Granulocytes % 1.3 % (0-4); Lymphocytes # 1.3 K/mcL (0.6-4.6); Lymphocytes % 20.9 %; Mean Corpuscular HGB Conc 29.9 g/dL (31.6-35.5); Mean Corpuscular Volume 90.3 fL (83.0-100.0); Mean Platelet Volume 10.5 fL (9.4-12.4); Monocytes # 0.4 K/mcL (0.0-1.3); Monocytes % 6.4 %; Neutrophils # 4.3 K/mcL (1.6-8.9); Nucleated Red Blood Cells 0.3 /100 WBC (0); Platelet Count 168 K/mcL (140-400); Red Cell Distribution Width 18.8 % (11.5-14.5); Segmented Neutrophils % 67.8 %; White Blood Count 6.4 K/mcL (4.3-11.1)
[2022-02-12 06:10] LABS: BUN/Creatinine Ratio 18 (6-26); Blood Urea Nitrogen 18 mg/dL (8-23); Calcium 8.9 mg/dL (8.6-10.3); Carbon Dioxide 31 mEq/L (23-29); Chloride 97 mEq/L (98-107); Glucose 217 mg/dL (70-105); Osmolality,Calculated 282 (280-300); Potassium 4.5 mEq/L (3.5-5.1); Sodium 132 mEq/L (136-145); eGFR For African Americans > 60 (> 60); eGFR For Non-African Americans 54 (> 60)
[2022-02-12] MEDS: Budesonide/Formoterol 160/4.5 1 PUFF INH IH SCH (07:45)
[2022-02-12] MEDS: Tiotropium 10 INH DOSE IH SCH (07:45)
[2022-02-12] MEDS: Insulin LISPRO 300 UNITS/3 ML VIAL SUBQ SCH ×3 (08:37→16:49)
[2022-02-12] MEDS: MetroNIDAZOLE 500 MG/100 ML 500 MG/100 ML BAG IVPB SCH (08:38)
[2022-02-12] MEDS: Cefepime HCl 2,000 MG in 0.9 % Sodium Chloride Mini Bag 100 ML IVPB SCH (08:40)
[2022-02-12] MEDS: Pantoprazole 40 MG VIAL IVP SCH (08:41)
[2022-02-12] MEDS: Spironolactone 25 MG TABLET PO SCH (08:53)
[2022-02-12] MEDS: amLODIPine 5 MG TABLET PO SCH (08:54)
[2022-02-12] MEDS: Gabapentin 400 MG CAPSULE PO SCH ×2 (08:54→15:06)
[2022-02-12] MEDS: Isosorbide MONOnitrate (24 HR) 60 MG TAB.ER.24H PO SCH (08:54)
[2022-02-12 12:00] VITALS: BP 163/60; PULSE 76; TEMP 97.9; O2SAT 98
[2022-02-12] MEDS ORDERED: Doxycycline 100 MG CAPSULE PO SCH (16:00)
[2022-02-12] MEDS ORDERED: Lactobacillus 1 EACH CAP.SPRINK PO SCH (21:00)
[2022-02-13] MEDS ORDERED: levoFLOXacin 750 MG TABLET PO SCH (09:00)
== END 2022-02-12 18:11 | disposition home or self-care (01) | DRG 853 ==
LOC: EMEROOARM 19:37 → 2NNU 02-07 02:35 → SUATTDRO 02-07 02:35 → 2NNU 02-07 03:33 → 4WAOSI 02-09 17:05
PROVIDERS: ADMIT Internal Medicine; ATTEND Internal Medicine

== ENCOUNTER 2022-02-20 12:34 | Inpatient (IN) ==
[2022-02-20] MEDS ORDERED: Iopamidol - 370 500 ML MLS IVP ONE (13:04)
[2022-02-20 13:51] LABS: Basophils % 0.3 %; Eosinophils # 0.1 K/mcL (0.0-0.6); Eosinophils % 0.5 %; Hematocrit 28.8 % (35.3-44.9); Hemoglobin 8.6 g/dL (11.5-15.4); Immature Granulocytes % 0.6 % (0-4); Lymphocytes # 0.9 K/mcL (0.6-4.6); Lymphocytes % 9.7 %; Mean Corpuscular HGB Conc 29.9 g/dL (31.6-35.5); Mean Corpuscular Volume 93.8 fL (83.0-100.0); Monocytes # 0.5 K/mcL (0.0-1.3); Monocytes % 5.5 %; Nucleated Red Blood Cells 0.2 /100 WBC (0); Platelet Count 165 K/mcL (140-400); Red Blood Count 3.07 M/mcL (3.82-4.97); Red Cell Distribution Width 20.9 % (11.5-14.5); Segmented Neutrophils % 83.4 %; White Blood Count 9.5 K/mcL (4.3-11.1)
[2022-02-20 14:01] LABS: VBG HCO3 23 mEq/L (21-27); VBG PCO2 38 mmHg (41-51); VBG PH 7.38 pH Units (7.32-7.42); VBG PO2 117 mmHg (25-50)
[2022-02-20 14:14] LABS: BUN/Creatinine Ratio 23 (6-26); Blood Urea Nitrogen 29 mg/dL (8-23); Calcium 9.4 mg/dL (8.6-10.3); Carbon Dioxide 23 mEq/L (23-29); Chloride 108 mEq/L (98-107); Glucose 192 mg/dL (70-105); Osmolality,Calculated 299 (280-300); Potassium 4.3 mEq/L (3.5-5.1); Sodium 139 mEq/L (136-145)
[2022-02-20 14:15] LABS: Troponin I < 0.03 ng/mL (< 0.04)
[2022-02-20] MEDS ORDERED: Furosemide 40 MG/4 ML VIAL IVP ONE (15:11)
[2022-02-20] MEDS ORDERED: Naloxone 0.4 MG/ML INJ IVP PRN (15:42)
[2022-02-20] MEDS ORDERED: Acetaminophen 325 MG TABLET PO PRN (15:42)
[2022-02-20] MEDS ORDERED: Ondansetron 4 MG/2 ML VIAL IVP PRN (15:42)
[2022-02-20 15:46] LABS: ABG Base Excess -1 mEq/L (-2 to 3); ABG HCO3 25 mEq/L (21-27); ABG Oxygen Saturation 95 % (95-98); ABG PCO2 44 mmHg (35-45); ABG PH 7.36 pH Units (7.32-7.45); ABG PO2 81 mmHg (85-104); ABG TCO2 26 mEq/L (20-26)
[2022-02-20 17:00] LABS: Influenza A PCR Negative (Negative); Influenza B PCR Negative (Negative); Resp. Syncytial Virus PCR Negative (Negative)
[2022-02-20 17:03] LABS: SARS-CoV-2 by PCR (In House) Negative (Negative)
[2022-02-20] MEDS ORDERED: D5% in Water 1,000 ML IVC PRN (17:16)
[2022-02-20] MEDS ORDERED: *HR* Dextrose 50 % in Water (Syg) 50 ML SYRINGE IVP PRN (17:16)
[2022-02-20] MEDS ORDERED: Dextrose Gel 15 GM/37.5 ML TUBE PO PRN ×2 (17:16)
[2022-02-20] MEDS ORDERED: Nystatin POWDER 30 GM BOTTLE TP PRN (17:37)
[2022-02-20] MEDS ORDERED: Nitroglycerin 0.4 MG TAB.SUBL SL PRN (17:37)
[2022-02-20] MEDS ORDERED: ALPRAZolam 1 MG TABLET PO PRN (17:37)
[2022-02-20] MEDS ORDERED: Ipratropium/Albuterol Neb 3 ML IH PRN (17:42)
[2022-02-20] MEDS: Gabapentin 300 MG CAPSULE PO SCH (20:33)
[2022-02-20] MEDS: Aspirin Enteric Coated 81 MG Tablet PO SCH (20:34)
[2022-02-20] MEDS: Lactobacillus 1 EACH CAP.SPRINK PO SCH (20:34)
[2022-02-20] MEDS: Doxycycline 100 MG CAPSULE PO SCH (20:34)
[2022-02-20] MEDS: Insulin LISPRO 300 UNITS/3 ML VIAL SUBQ SCH ×2 (20:35)
[2022-02-20] MEDS ORDERED: Gabapentin 400 MG CAPSULE PO SCH (21:00)
[2022-02-21 03:15] LABS: Basophils % 0.3 %; Eosinophils # 0.1 K/mcL (0.0-0.6); Eosinophils % 0.8 %; Hematocrit 25.3 % (35.3-44.9); Hemoglobin 7.6 g/dL (11.5-15.4); Immature Granulocytes % 0.5 % (0-4); Lymphocytes % 15.9 %; Mean Corpuscular Hemoglobin 27.7 pg (28.0-33.3); Mean Corpuscular Volume 92.3 fL (83.0-100.0); Mean Platelet Volume 10.7 fL (9.4-12.4); Monocytes # 0.4 K/mcL (0.0-1.3); Neutrophils # 4.8 K/mcL (1.6-8.9); Platelet Count 155 K/mcL (140-400); Red Blood Count 2.74 M/mcL (3.82-4.97); Red Cell Distribution Width 20.7 % (11.5-14.5); Segmented Neutrophils % 76.5 %; White Blood Count 6.2 K/mcL (4.3-11.1)
[2022-02-21 03:35] LABS: Calcium 9.4 mg/dL (8.6-10.3); Magnesium 1.8 mg/dL (1.6-2.6); Potassium 4.3 mEq/L (3.5-5.1)
[2022-02-21 03:39] LABS: Albumin 3.3 g/dL (3.5-5.7); Albumin/Globulin Ratio 0.9 (1.1-2.2); Bilirubin,Direct 0.1 mg/dL (0.0-0.2); Bilirubin,Indirect 0.3 mg/dL (0.0-1.0); Bilirubin,Total 0.4 mg/dL (0.3-1.0); Globulin 3.6 g/dL (2.4-3.5); Total Protein 6.9 g/dL (6.4-8.9)
[2022-02-21 03:58] LABS: Folate 14.1 ng/mL (3.0-16.0)
[2022-02-21] MEDS: *HR* Heparin 5,000 UNIT/ML VIAL SQ SCH ×2 (04:54→17:06)
[2022-02-21] MEDS: *HR* OxyCODONE/APAP 5/325 TABLET PO PRN ×3 (04:55→20:26)
[2022-02-21] MEDS: Insulin LISPRO 300 UNITS/3 ML VIAL SUBQ SCH ×4 (07:49→19:14)
[2022-02-21] MEDS ORDERED: Tiotropium 10 INH DOSE IH ONE (07:50)
[2022-02-21] MEDS: allopurinoL 300 MG TABLET PO SCH (07:50)
[2022-02-21] MEDS: amLODIPine 5 MG TABLET PO SCH (07:50)
[2022-02-21] MEDS: Gabapentin 300 MG CAPSULE PO SCH ×2 (07:50→20:25)
[2022-02-21] MEDS: Lactobacillus 1 EACH CAP.SPRINK PO SCH ×2 (07:50→20:25)
[2022-02-21] MEDS: Isosorbide MONOnitrate (24 HR) 60 MG TAB.ER.24H PO SCH (07:50)
[2022-02-21] MEDS: Furosemide 40 MG/4 ML VIAL IVP SCH (07:51)
[2022-02-21] MEDS: Doxycycline 100 MG CAPSULE PO SCH ×2 (07:51→20:25)
[2022-02-21] MEDS: Tiotropium 10 INH DOSE IH SCH (07:58)
[2022-02-21] MEDS ORDERED: levoFLOXacin 750 MG TABLET PO SCH (09:00)
[2022-02-21] MEDS ORDERED: Gabapentin 300 MG CAPSULE PO SCH (15:00)
[2022-02-21] MEDS: hydrALAZINE 25 MG TABLET PO SCH ×2 (17:06→23:31)
[2022-02-21] MEDS: Aspirin Enteric Coated 81 MG Tablet PO SCH (20:24)
[2022-02-22] MEDS: *HR* Heparin 5,000 UNIT/ML VIAL SQ SCH (05:35)
[2022-02-22] MEDS: Tiotropium 10 INH DOSE IH SCH (07:50)
[2022-02-22] MEDS: amLODIPine 5 MG TABLET PO SCH (08:46)
[2022-02-22] MEDS: Furosemide 40 MG/4 ML VIAL IVP SCH (08:46)
[2022-02-22] MEDS: Lactobacillus 1 EACH CAP.SPRINK PO SCH (08:46)
[2022-02-22] MEDS: allopurinoL 300 MG TABLET PO SCH (08:46)
[2022-02-22] MEDS: Doxycycline 100 MG CAPSULE PO SCH (08:46)
[2022-02-22] MEDS: Gabapentin 300 MG CAPSULE PO SCH (08:46)
[2022-02-22] MEDS: hydrALAZINE 25 MG TABLET PO SCH (08:46)
[2022-02-22] MEDS: Isosorbide MONOnitrate (24 HR) 60 MG TAB.ER.24H PO SCH (08:46)
[2022-02-22] MEDS: Insulin LISPRO 300 UNITS/3 ML VIAL SUBQ SCH (08:47)
[2022-02-22] MEDS ORDERED: lisinopriL 20 MG TABLET PO SCH (09:00)
[2022-02-22 09:38] LABS: Hematocrit 28.8 % (35.3-44.9); Hemoglobin 8.7 g/dL (11.5-15.4); Mean Corpuscular HGB Conc 30.2 g/dL (31.6-35.5); Mean Corpuscular Hemoglobin 27.9 pg (28.0-33.3); Mean Corpuscular Volume 92.3 fL (83.0-100.0); Mean Platelet Volume 10.7 fL (9.4-12.4); Platelet Count 141 K/mcL (140-400); Red Blood Count 3.12 M/mcL (3.82-4.97); Red Cell Distribution Width 20.1 % (11.5-14.5); White Blood Count 5.7 K/mcL (4.3-11.1)
[2022-02-22 09:58] LABS: Calcium 9.5 mg/dL (8.6-10.3); Potassium 4.4 mEq/L (3.5-5.1)
[2022-02-22 11:34] VITALS: BP 163/54; PULSE 66; TEMP 99.1; O2SAT 92
[2022-02-22] MEDS: *HR* OxyCODONE/APAP 5/325 TABLET PO PRN (12:04)
[2022-02-23] MEDS ORDERED: levoFLOXacin 750 MG TABLET PO SCH (09:00)
== END 2022-02-22 13:15 | disposition home or self-care (01) | DRG 291 ==
LOC: 2NENU 12:34 → EMEROOARM 12:34 → SUATTDRO 16:00 → 2NENU 17:05 → SUATTDRO 19:27
PROVIDERS: ADMIT Pharmacist; ATTEND Internal Medicine